=== PATIENT | male | born 1970 | race Caucasian/White ===

== ENCOUNTER 2019-04-16 06:41 | Inpatient (IN) | payer SELFPAY ==
[2019-06-03 06:22] LABS: BILIRUBIN,URINE NEGATIVE (NEG); CLARITY,URINE CLEAR; COLOR,URINE YELLOW
[2019-06-03 06:23] LABS: BACTERIA,URINE 0 /HPF (0-FEW); NITRITE,URINE NEGATIVE (NEG); PH,URINE 6.5; PROTEIN,URINE NEGATIVE (NEG-TRACE); RBC,URINE >40 /HPF (0-2); SQUAMOUS EPITHELIAL CELL,UR FEW /LPF; WBC,URINE 0 /HPF (0-4)
[2019-06-03 06:26] LABS: ALBUMIN 2.5 g/dL (3.4-5.0); ALBUMIN/GLOBULIN RATIO 0.5 (1.0-1.7); CALCIUM 8.5 mg/dL (8.5-10.1); CREATININE 0.9 mg/dL (0.7-1.3); GFR 89.3; POTASSIUM 3.6 mmol/L (3.5-5.1); TOTAL BILIRUBIN 0.4 mg/dL (0.2-1.0); TOTAL PROTEIN 7.1 g/dL (6.4-8.2)
[2019-06-03 06:27] LABS: HEMOGLOBIN 12.9 g/dL (13.0-17.5); MEAN CORPUSCULAR HEMOGLOBIN 32 pg (25-35); MEAN CORPUSCULAR HGB CONC 36 g/dL (31-37); MEAN CORPUSCULAR VOLUME 89 fL (79-100); RED BLOOD COUNT 4.05 x10^6/uL (4.30-5.70); RED CELL DISTRIBUTION WIDTH 12.6 % (11.5-14.5); WHITE BLOOD COUNT 10.3 x10^3/uL (4.0-11.0)
[2019-06-03 06:28] LABS: BASO % 0 % (0-3); EOS # 0.2 x10^3/uL (0.0-0.7); EOS % 2 % (0-3); LYMPH # 1.4 x10^3/uL (1.0-4.8); LYMPH % 13 % (24-48); MONO # 0.9 x10^3/uL (0.0-1.1); MONO % 9 % (0-9); NEUT # 7.8 x10^3/uL (1.8-7.7); NEUT % 76 % (31-73); PLATELET COUNT 286 x10^3/uL (140-400)
[2019-06-03 06:31] LABS: CREATININE 0.7 mg/dL (0.7-1.3); GFR 119.4
[2019-06-03 06:34] LABS: CALCIUM 8.6 mg/dL (8.5-10.1); CREATININE 0.8 mg/dL (0.7-1.3); GFR 102.3; POTASSIUM 3.5 mmol/L (3.5-5.1)
[2019-06-03 06:35] LABS: BASO % 0 % (0-3); EOS # 0.3 x10^3/uL (0.0-0.7); EOS % 3 % (0-3); HEMATOCRIT 38.4 % (39.0-53.0); HEMOGLOBIN 13.5 g/dL (13.0-17.5); LYMPH # 1.6 x10^3/uL (1.0-4.8); LYMPH % 19 % (24-48); MEAN CORPUSCULAR HEMOGLOBIN 31 pg (25-35); MEAN CORPUSCULAR HGB CONC 35 g/dL (31-37); MEAN CORPUSCULAR VOLUME 89 fL (79-100); MONO # 0.8 x10^3/uL (0.0-1.1); MONO % 9 % (0-9); NEUT # 5.7 x10^3/uL (1.8-7.7); NEUT % 68 % (31-73); PLATELET COUNT 356 x10^3/uL (140-400); RED BLOOD COUNT 4.33 x10^6/uL (4.30-5.70); RED CELL DISTRIBUTION WIDTH 12.7 % (11.5-14.5); WHITE BLOOD COUNT 8.4 x10^3/uL (4.0-11.0)
--- NOTE | 2019-06-03 10:49 | RAD ---
CT ABD PELV W/ IV CONTRST ONLY Indication: Abdominal wall cellulitis. Exposure: One or more of the following individualized dose reduction techniques were utilized for this examination: 1. Automated exposure control 2. Adjustment of the mA and/or kV according to patient size 3. Use of iterative reconstruction technique. Technique: Intravenous contrast was given. No oral contrast per request. Comparison: None FINDINGS: Mild atelectasis or possible mild infiltrate in lung bases. Liver unremarkable. Spleen is nonenlarged. Pancreas is unremarkable. No adrenal mass. Kidneys demonstrate symmetric enhancement without hydronephrosis or focal mass. Small nonobstructive bilateral renal calculi are identified. No calcified gallstone. Gallbladder is mostly contracted. Aorta is nonaneurysmal. No significant lymph node enlargement. Mild gastric wall thickening proximally, likely just due to nondistention. No significant small bowel distention. No evidence of acute colitis. Mild retained stool through the colon. Appendix is not clearly visualized. No evidence of significant ascites or pneumoperitoneum. Urinary bladder appears grossly unremarkable. Prostate gland measures 5.3 cm wide. Vertebral body height and alignment are intact, mild spondylosis. No aggressive bone destruction. Diffuse hazy density within the anterior abdominal fat, much more so to the left of midline and centered at the level of the umbilicus. To lesser extent this extends through the left lateral flank. No organized fluid collection or is seen. IMPRESSION: 1. Diffuse stranding within the subcutaneous fat of the anterior abdominal wall, much more so to the left of midline, compatible with nonspecific edema, cellulitis or inflammatory etiology. No organized fluid collection is seen. 2. Mild atelectasis or possible infiltrate in lung bases. Electronically signed by: Ravin Mai MD (04/16/2019 8:43 AM) [facility]
== END 2019-04-18 13:32 | disposition home or self-care (01) | DRG 603 ==
LOC: ER 06:41 → 5 SOUTH 07:49
PROVIDERS: ADMIT Internal Medicine; ATTEND Internal Medicine
DX: L02.211 Cutaneous abscess of abdominal wall (principal); E11.65 Type 2 diabetes mellitus with hyperglycemia; R31.9 Hematuria, unspecified; L03.311 Cellulitis of abdominal wall; D64.9 Anemia, unspecified
CPT/HCPCS: 36415; 74177; 80048; 80053; 80202; 81001; 82565; 82962; 83605; 83690; 85025; 87040; 96365; 96375; 96376; J1815; J2405; J3010; J3370; J3490; J7030; J7040; J7050; Q9967; 99285-25; G0378

== ENCOUNTER 2021-04-29 12:18 | Emergency (ER) | payer SELFPAY ==
[~2021-04-29] VITALS: Ht 160 cm; Wt 80.9 kg
--- NOTE | 2021-04-29 14:11 | RAD ---
EXAM: Chest, single view. HISTORY: Extremity infection. COMPARISON: None. FINDINGS: A frontal view of the chest is obtained. There is mild diffuse increased interstitial opaci ty. There is no consolidation, pleural effusion or pneumothorax. The heart is normal in size. IMPRESSION: Mild diffuse increased interstitial opacity suggesting interstitial infiltrate. There is no consolidated pneumonia. Electronically signed by: Casandra Crowell MD (04/29/2021 2:09 PM) [id number]
[2021-04-29 14:14] LABS: BASO % 1 % (0-3); EOS # 0.3 x10^3/uL (0.0-0.7); EOS % 4 % (0-3); HEMATOCRIT 39.9 % (39.0-53.0); LYMPH # 1.7 x10^3/uL (1.0-4.8); LYMPH % 22 % (24-48); MEAN CORPUSCULAR HEMOGLOBIN 31 pg (25-35); MEAN CORPUSCULAR HGB CONC 35 g/dL (31-37); MEAN CORPUSCULAR VOLUME 90 fL (79-100); MONO # 0.6 x10^3/uL (0.0-1.1); MONO % 8 % (0-9); NEUT # 5.2 x10^3/uL (1.8-7.7); NEUT % 66 % (31-73); PLATELET COUNT 358 x10^3/uL (140-400); RED BLOOD COUNT 4.46 x10^6/uL (4.30-5.70); RED CELL DISTRIBUTION WIDTH 12.7 % (11.5-14.5); WHITE BLOOD COUNT 7.8 x10^3/uL (4.0-11.0)
[2021-04-29 14:29] LABS: BARBITURATES NEG (NEG); BENZODIAZEPINES NEG (NEG); CANNABINOIDS NEG (NEG); COCAINE NEG (NEG); METHADONE NEG (NEG); OPIATES NEG (NEG); PHENCYCLIDINE NEG (NEG)
[2021-04-29 14:31] LABS: AMPHETAMINE/METHAMPHETAMINE NEG (NEG)
[2021-04-29 14:32] LABS: CALCIUM 9.6 mg/dL (8.5-10.1); CREATININE 1.2 mg/dL (0.7-1.3); GFR 63.6; POTASSIUM 4.5 mmol/L (3.5-5.1)
[2021-04-29 14:38] LABS: ALBUMIN 3.3 g/dL (3.4-5.0); ALBUMIN/GLOBULIN RATIO 0.6 (1.0-1.7); MAGNESIUM 2.2 mg/dL (1.8-2.4); PHOSPHORUS 3.4 mg/dL (2.6-4.7); TOTAL BILIRUBIN 0.3 mg/dL (0.2-1.0)
--- NOTE | 2021-04-29 15:17 | EKG ---
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
[2021-04-29] MEDS ORDERED: LIDOCAINE 1% Multi-Dose 20 ML VIAL. INJ ONE (16:00)
--- NOTE | 2021-04-29 16:44 | RAD ---
Examination: 3 views of the left ankle HISTORY: History of lateral elbow cellulitis COMPARISON: None available FINDINGS: The elbow joint grossly appears unremarkable. There is mild soft tissue swelling identified about the elbow joint could be edema or cellulitis. No evidence of cortical disruption. IMPRESSION: Mild soft tissue swelling identified about the elbow joint could be edema or cellulitis. Electronically signed by: Sina Alejandra MD (04/29/2021 4:42 PM) [id number]
--- NOTE | 2021-04-29 16:51 | PHYS DOC ---
Past Medical History Past Surgical History: No Surgical History Smoking Status: Never Smoker Alcohol Use: None General Adult EDM: Chief Complaint: OTHER COMPLAINTS HPI: HPI: Patient is a 50 year old male presents emergency department complaining of an infection to his left elbow for the past week. Patient states he he went to see his primary care physician today who sent him straight to the emergency department to rule out MRSA. Patient reports he has had other abscesses in the past that he usually pops and they go away. Patient reports he has a type II diabetic however does not take his diabetic medicine at home because he is not interested in treating his diabetes. Patient denies chest pain, shortness of breath, nausea, vomiting, diarrhea, or other rashes or abscesses to his skin. Patient denies fever or chills. Patient denies IV drug abuse, denies illicit drug use, denies cigarette smoking, denies alcohol consumption. Patient reports his last tetanus immunization was greater than 5 years ago. Patient denies other physical complaints or physical concerns. Review of Systems: Review of Systems: 14 body systems of review of systems have been reviewed. See HPI for pertinent positives and negative responses, otherwise all other systems are negative, nonpertinent or noncontributory. Constitutional: Negative except as outlined in HPI above. Skin: Negative except as outlined in HPI above. Eyes: Negative except as outlined in HPI above. HENT: Negative except as outlined in HPI above. Respiratory: Negative except as outlined in HPI above. Cardiovascular: Negative except as outlined in HPI above. GI: Negative except as outlined in HPI above. : Negative except as outlined in HPI above. Musculoskeletal: Negative except as outlined in HPI above. Integument: Negative except as outlined in HPI above. Neurologic: Negative except as outlined in HPI above. Endocrine: Negative except as outlined in HPI above. Lymphatic: Negative except as outlined in HPI above. Psychiatric: Negative except as outlined in HPI above. Heart Score: C/O Chest Pain: No Risk Factors: Risk Factors: DM, Current or recent (<one month) smoker, HTN, HLP, family history of CAD, obesity. Risk Scores: Score 0 - 3: 2.5% MACE over next 6 weeks - Discharge Home Score 4 - 6: 20.3% MACE over next 6 weeks - Admit for Clinical Observation Score 7 - 10: 72.7% MACE over next 6 weeks - Early Invasive Strategies Current Medications: Current Medications Medications (Trade) Dose Ordered Sig/Mitch Start Time Stop Time Status Last Admin Dose Admin Lidocaine HCl (Lidocaine 1% 20ml Vial) 20 ml 1X ONCE 04/29/21 16:00 04/29/21 16:01 DC 04/29/21 16:00 20 ML Allergies: Allergies: Allergies Coded Allergies Type Severity Reaction Last Updated Verified No Known Drug Allergies 04/29/21 No Physical Exam: PE: Constitutional: Well developed, well nourished, no acute distress, non-toxic appearance. 50-year-old male in no apparent distress. Disheveled appearance. HENT: Normocephalic, atraumatic. Eyes: Conjunctiva normal, no discharge. Neck: Normal range of motion, no stridor. Cardiovascular: No cyanosis appreciated, distal cap refill less than 2 seconds. Lungs & Thorax: Patient is in no respiratory distress, no audible adventitious lung sounds appreciated. Abdomen: Nontender, no abnormalities noted. Skin: Warm, dry, no erythema, no rash. See extremity note for focused skin examination. Back: No tenderness, no deformities. Extremities: No tenderness, no cyanosis, no clubbing, ROM intact, no edema. Fluctuant abscess measuring 8 cm in diameter at left lateral elbow, full AROM/PROM of elbow joint. No lymphangitis appreciated. No loss of sensation distally, 2+ brachial and radial pulse, distal cap refill less than 2 seconds. Neurologic: Alert and oriented X 3, normal motor function, normal sensory function, no focal deficits noted. Psychologic: Affect normal, judgement normal, mood normal. Current Patient Data: Labs: Laboratory Tests Test 04/29/21 13:55 04/29/21 14:10 White Blood Count 7.8 x10^3/uL (4.0-11.0) Red Blood Count 4.46 x10^6/uL (4.30-5.70) Hemoglobin 14.0 g/dL (13.0-17.5) Hematocrit 39.9 % (39.0-53.0) Mean Corpuscular Volume 90 fL (79-100) Mean Corpuscular Hemoglobin 31 pg (25-35) Mean Corpuscular Hemoglobin Concent 35 g/dL (31-37) Red Cell Distribution Width 12.7 % (11.5-14.5) Platelet Count 358 x10^3/uL (140-400) Neutrophils (%) (Auto) 66 % (31-73) Lymphocytes (%) (Auto) 22 % (24-48) L Monocytes (%) (Auto) 8 % (0-9) Eosinophils (%) (Auto) 4 % (0-3) H Basophils (%) (Auto) 1 % (0-3) Neutrophils # (Auto) 5.2 x10^3/uL (1.8-7.7) Lymphocytes # (Auto) 1.7 x10^3/uL (1.0-4.8) Monocytes # (Auto) 0.6 x10^3/uL (0.0-1.1) Eosinophils # (Auto) 0.3 x10^3/uL (0.0-0.7) Basophils # (Auto) 0.0 x10^3/uL (0.0-0.2) Sodium Level 135 mmol/L (136-145) L Potassium Level 4.5 mmol/L (3.5-5.1) Chloride Level 99 mmol/L (98-107) Carbon Dioxide Level 28 mmol/L (21-32) Anion Gap 8 (6-14) Blood Urea Nitrogen 16 mg/dL (8-26) Creatinine 1.2 mg/dL (0.7-1.3) Estimated GFR (Cockcroft-Gault) 63.6 BUN/Creatinine Ratio 13 (6-20) Glucose Level 310 mg/dL (70-99) H Calcium Level 9.6 mg/dL (8.5-10.1) Phosphorus Level 3.4 mg/dL (2.6-4.7) Magnesium Level 2.2 mg/dL (1.8-2.4) Total Bilirubin 0.3 mg/dL (0.2-1.0) Aspartate Amino Transferase (AST) 16 U/L (15-37) Alanine Aminotransferase (ALT) 22 U/L (16-63) Alkaline Phosphatase 133 U/L (46-116) H Troponin I Quantitative < 0.017 ng/mL (0.000-0.055) Total Protein 9.0 g/dL (6.4-8.2) H Albumin 3.3 g/dL (3.4-5.0) L Albumin/Globulin Ratio 0.6 (1.0-1.7) L Urine Opiates Screen Neg (NEG) Urine Methadone Screen Neg (NEG) Urine Barbiturates Neg (NEG) Urine Phencyclidine Screen Neg (NEG) Urine Amphetamine/Methamphetamine Neg (NEG) Urine Benzodiazepines Screen Neg (NEG) Urine Cocaine Screen Neg (NEG) Urine Cannabinoids Screen Neg (NEG) Urine Ethyl Alcohol Neg (NEG) Laboratory Tests 04/29/21 13:55 Laboratory Tests 04/29/21 13:55 Vital Signs: Vital Signs Date Time Temp Pulse Resp B/P (MAP) Pulse Ox O2 Delivery O2 Flow Rate FiO2 04/29/21 13:53 98.2 56 20 217/84 (128) 100 Room Air 98.2 EKG: EKG: EKG performed at 1412 by ED nursing staff shows a sinus bradycardia at 49 bpm without other ectopy, UT interval 0.170, QTc interval 0.378, no acute STEMI, no ACS, no acute ischemia appreciated, EKG interpreted by ED attending physician Dr. Ching. Radiology/Procedures: Radiology/Procedures: PATIENT: FREDERIC PALACIOS ACCOUNT: [id number] : 1970 LOCATION: ER AGE: 50 SEX: M EXAM STATUS: REG ER ORD. PHYSICIAN: YAQUELIN MORALES APRN REASON: extremity infections PROCEDURE: CHEST AP ONLY EXAM: Chest, single view. HISTORY: Extremity infection. COMPARISON: None. FINDINGS: A frontal view of the chest is obtained. There is mild diffuse increased interstitial opacity. There is no consolidation, pleural effusion or pneumothorax. The heart is normal in size. IMPRESSION: Mild diffuse increased interstitial opacity suggesting interstitial infiltrate. There is no consolidated pneumonia. Electronically signed by: Casandra Crowell MD (04/29/2021 2:09 PM) [id number] PATIENT: FREDERIC PALACIOS ACCOUNT: [id number] : 1970 LOCATION: ER AGE: 50 SEX: M EXAM STATUS: REG ER ORD. PHYSICIAN: YAQUELIN MORALES APRN REASON: Lateral elbow cellulitis with abscess rule out osteomyelitis PROCEDURE: ELBOW LEFT 3V Examination: 3 views of the left ankle HISTORY: History of lateral elbow cellulitis COMPARISON: None available FINDINGS: The elbow joint grossly appears unremarkable. There is mild soft tissue swelling identified about the elbow joint could be edema or cellulitis. No evidence of cortical disruption. IMPRESSION: Mild soft tissue swelling identified about the elbow joint could be edema or cellulitis. Electronically signed by: Sina Alejandra MD (04/29/2021 4:42 PM) [id number] Course & Med Decision Making: Course & Med Decision Making Pertinent Labs and Imaging studies reviewed. (See chart for details) 50-year-old male, vital signs reviewed, presents emergency department concerning abscess of the left elbow. Physical examination consistent with abscess of the left elbow, patient's disheveled appearance, multiple scars from old abscess wounds on his upper extremities and abdomen, concerning for IV drug abuse, patient does deny illicit drug use, however there are family members present. Patient does have bradycardia upon initial triage vitals, will order cardiorespiratory work-up with blood cultures to rule out systemic infection. The patient is however afebrile, denies chest pain or chest discomfort. The patient's tetanus immunization will be brought up-to-date today in the emergency department with Adacel/Tdap, x-ray of left elbow to rule out osteomyelitis or deep tissue infection. See I&D note. Patient's labs unremarkable, x-ray nonconcerning for osteomyelitis, patient tolerated incision and drainage procedure well, will prescribe oral antibiotic regimen, strict follow-up with PCP in 3 days, wound recheck in 3 days. Return to ER precautions and concerns. Patient is amenable to ED discharge planning. Discussed with the patient all findings and diagnostic testing as well as the need to follow-up with their primary care provider for further evaluation and treatment or return to the ED if any new or worsening symptoms. Strict return precautions were also discussed at length, the patient voiced understanding and agreement with the discharge planning. The patient was nontoxic in appearance, in no apparent distress, and hemodynamically stable at the time of disposition. Dragon Disclaimer: Dragon Disclaimer: This electronic medical record was generated, in whole or in part, using a voice recognition dictation system. Incision and Drainage Time: 1600 Confirmed : Patient, procedure, side, and site correct. Consent: The patient has given verbal consent for incision and drainage of abscess of the left elbow. Indication: Abscess of the left elbow Performed by: Yaquelin Ames PLANNER-C Supervision: Dr. Ching was available for consult regarding the critical aspects of the procedure, incision, and post procedure exam. Preprocedure exam: Circulation, motor, and sensory intact. Procedural sedation: Not indicated. Description Location: Left lateral elbow Anesthesia: Anesthesia was achieved using 3 cc 1% lidocaine without epinephrine Preparation: Sterile field established, skin prepped with Betadine solution. Procedure The patient was positioned appropriately. An incision was then made over the central punctum of the left elbow abscess using a #11 blade scalpel. Technique: A fluid collection was manually decompressed, wound probed, lo culations decompressed . Drainage : Large amount of purulent, bloody, serosanguineous fluid expressed, a aerobic/anaerobic wound culture was sent to lab for C&S and Gram stain, the abscess cavity was irrigated with 500 cc normal saline using ZeroWet cap, the cavity was packed with 15 cm quarter inch sterile wound packing material.. Post procedure exam : Circulation, motor, sensory examination intact. Patient tolerated : Well. Complications: There were no complications. Follow-up: Home care instructions given. Total time: 10 minutes. Departure Departure Impression: Primary Impression: Abscess of left elbow Disposition: 01 HOME / SELF CARE / HOMELESS Condition: GOOD Referrals: LIAN PARKER M.D. (PCP) Patient Instructions: Abscess Additional Instructions: You were seen today in the emergency department for an abscess of your left elbow. This required an incision and drainage, this was then packed with cloth material to aid in healing. This will require a reevaluation in 3 days. Do not remove this packing, please continue to shower and perform wound care as you normally would. Please see your primary care doctor soon. I have started you on an oral antibiotic that you will take twice a day for the next week. Please order picker this prescription at the pharmacy and take as directed. Please return to the emergency department for worsening symptoms or other concerns. Thank you for visiting our Emergency Department. It was a pleasure taking care of you today in the emergency department and we appreciate you trusting us with your care. If any additional problems come up don't hesitate to return to visit us. Please follow up with your primary care provider so they can plan additional care if needed and know about the problem that you had. If symptoms worsen come back to the Emergency Department. Any concerning symptoms that start such as chest pain, shortness of air, weakness or numbness on one side of the body, running high fevers or any other concerning symptoms return to the ER. Hoy lo vieron en el departamento de emergencias por un absceso en buckley codo feliz. [place] requiri lor incisin y drenaje, luego se empaquet con material de lara para ayudar en la curacin. [place] requerir lor reevaluacin en 3 dangelo. No retire leigh empaque, contine duchndose y realice el cuidado de la herida oscar lo pablo normalmente. Consulte a buckley mdico de atencin primaria pronto. Le he comenzado con un antibitico oral que melissa dos veces al da edu la prxima semana. Recoja esta receta en la farmacia y tmela segn las indicaciones. Regrese al departamento de emergencias si los sntomas empeoran u otras inquietudes. Tavo por visitar nuestro Departamento de Emergencias. Fue un placer atenderlo hoy en el departamento de emergencias y le agradecemos que nos haya confiado buckley atencin. Si surge algn problema adicional, no dude en volver a visitarnos. Christopher un seguimiento con buckley proveedor de atencin primaria para que puedan planificar la atencin adicional si es necesario y conocer el problema que tuvo. Si los sntomas empeoran, regrese al Departamento de Emergencias. Cualquier sntoma preocupante que comience, oscar dolor en el pecho, falta de aire, debilidad o entumecimiento en un lado del cuerpo, fiebre melody o cualquier otro sntoma preocupante, regresa a la thelma de emergencias. EMERGENCY DEPARTMENT GENERAL DISCHARGE INSTRUCTIONS Thank you for coming to [facility] Emergency Department (ED) today and trusting us with you care. We trust that you had a positive experience in our Emergency Department. If you wish to speak to the department management, you may call the Director at [phone]. YOUR FOLLOW UP INSTRUCTIONS ARE FOLLOWS: 1. Do you have a private Doctor? If you do not have a private doctor, please ask for a resource list of physicians or clinics that may be able to assist you with follow up care. 2. The Emergency Physicain has interpreted your x-rays. The X-Ray specialist will also review them. If there is a change in the findings, you will be notified in 48 hours when at all possible. 3. A lab test or culture has been done, your results will be reviewed and you will be notified if you need a change in treatment. ADDITIONAL INSTRUCTIONS AND INFORMATION: 1. Your care today has been supervised by a physician who is specially trained in emergency care. Many problems require more than one evaluation for a complete diagnosis and treatment. We recommend that you schedule your follow up appointment as recommended to ensure complete treatment of you illness or injury. If you are unable to obtain follow up care and continue to have a problem, or if your condition worsens, we recommend that you return to the ED. 2. We are not able to safely determine your condition over the phone nor are we able to give sound medical advice over the phone. For these safety reasons, if you call for medical advice we will ask you to come to the ED for further evaluation. 3. If you have any questions regarding these discharge instructions please call the ED at [phone]. SAFETY INFORMATION: In the interest of safety, wellness, and injury prevention; we encourage you to wear your sealbelt, if you smoke; quite smoking, and we encourage family to use a protective helmet for bicycling and other sporting events that present an increased risk for head injury. IF YOUR SYMPTOMS WORSEN OR NEW SYMPTOMS DEVELOP, OR YOU HAVE CONCERNS ABOUT YOUR CONDITION; OR IF YOUR CONDITION WORSENS WHILE YOU ARE WAITING FOR YOUR FOLLOW UP APPOINTMENT; EITHER CONTACT YOUR PRIMARY CARE DOCTOR, THE PHYSICIAN WHOSE NAME AND NUMBER YOU WERE GIVEN, OR RETURN TO THE ED IMMEDIATELY. Scripts Sulfamethoxazole/Trimethoprim (BACTRIM DS TABLET) 1 Each Tablet 1 TAB PO BID for skin infection for 7 Days, #14 TAB 0 Refills Prov: YAQUELIN MORALES APRN 04/29/21 YAQUELIN MORALES APRN Apr 29, 2021 16:51
[2021-04-29 16:58] VITALS: BP 181/70
[2021-04-29] MEDS ORDERED: DIPH,PERTUSS(ACELL),TET VAC/PF 0.5 ML SYRINGE. VAX IM ONE (17:00)
[2021-04-29] MEDS ORDERED: SULF1TAB24 PO (17:18)
== END 2021-04-29 17:31 | disposition home or self-care (01) ==
LOC: ER 12:18
DX: L02.414 Cutaneous abscess of left upper limb (principal); R07.89 Other chest pain
CPT/HCPCS: 10060; 36415; 71045; 73080; 80053; 80307; 83735; 84100; 84484; 85025; 87040; 87071; 87075; 90471; 90715; 93005; 99285; J3490

== ENCOUNTER 2021-05-02 10:30 | Emergency (ER) | payer SELFPAY ==
[~2021-05-02] VITALS: Ht 172.7 cm; Wt 80.9 kg
[~2021-05-02 10:30] MED LIST: SULF1TAB24 PO
--- NOTE | 2021-05-02 12:23 | PHYS DOC ---
Past Medical History Past Medical History: Diabetes-Type II Past Surgical History: No Surgical History Smoking Status: Never Smoker Alcohol Use: None General Adult EDM: Chief Complaint: WOUND CHECK HPI: HPI: Patient is a 50 year old male with history of diabetes type 2 who presents to the ED today for wound check for an abscess that was drained on the left forearm 2 days ago. Patient states he also has a new wound on the umbilicus and right foot. Denies any fever. He states he was on Metformin and his sugars were running in the 400s a couple days ago. Review of Systems: Review of Systems: Constitutional: Denies fever or chills. [] Eyes: Denies change in visual acuity. [] HENT: Denies nasal congestion or sore throat. [] Respiratory: Denies, or shortness of breath. [] Cardiovascular: Denies chest pain or edema. [] GI: Denies abdominal pain, nausea, vomiting, bloody stools or diarrhea. [] : Denies dysuria. [] Musculoskeletal: Denies back pain or joint pain. [] Integument: Visit for wound check on the left forearm, right toe and umbilicus Neurologic: Denies headache, focal weakness or sensory changes. [] Psychiatric: Denies depression or anxiety. [] Heart Score: C/O Chest Pain: N/A Risk Factors: Risk Factors: DM, Current or recent (<one month) smoker, HTN, HLP, family history of CAD, obesity. Risk Scores: Score 0 - 3: 2.5% MACE over next 6 weeks - Discharge Home Score 4 - 6: 20.3% MACE over next 6 weeks - Admit for Clinical Observation Score 7 - 10: 72.7% MACE over next 6 weeks - Early Invasive Strategies Current Medications: Current Medications Medications (Trade) Dose Ordered Sig/Mitch Start Time Stop Time Status Last Admin Dose Admin Acetaminophen/ Hydrocodone Bitart (Lortab 5/325) 2 tab 1X ONCE 05/02/21 12:30 05/02/21 12:31 Ceftriaxone Sodium (Rocephin Im) 1 gm 1X ONCE 05/02/21 12:30 05/02/21 12:31 Lidocaine HCl (Xylocaine-Mpf 1% 2ml Vial) 2 ml 1X ONCE 05/02/21 12:30 05/02/21 12:31 Neomycin/ Polymyxin/ Bacitracin (Triple Antibiotic Ointment) 1 pkt 1X ONCE 05/02/21 12:45 05/02/21 12:46 Allergies: Allergies: Allergies Coded Allergies Type Severity Reaction Last Updated Verified No Known Drug Allergies 05/02/21 No Physical Exam: PE: Constitutional: Well developed, well nourished, no acute distress, non-toxic appearance. [] HENT: Normocephalic, atraumatic, bilateral external ears normal, oropharynx moist, no oral exudates, nose normal. [] Eyes: PERRLA, EOMI, conjunctiva normal, no discharge. [] Neck: Normal range of motion, no tenderness, supple, no stridor. [] Cardiovascular:Heart rate regular rhythm, no murmur [] Lungs & Thorax: Bilateral breath sounds clear to auscultation [] Abdomen: Bowel sounds normal, soft, no tenderness, no masses, no pulsatile masses. [] Skin: Umbilicus with a area of cellulitis surrounding the umbilicus. No drainage. Right great onychomycosis. CT perfusion elbow contusion but not infected. Left lateral elbow with an open abscess roughly 2 x 0.5 cm. The area has packing and is draining moderate amount of purulent bloody material. See I&D note. Back: No tenderness, no CVA tenderness. [] Extremities: No tenderness, no cyanosis, no clubbing, ROM intact, no edema. [] Neurologic: Alert and oriented X 3, normal motor function, normal sensory fun ction, no focal deficits noted. [] Psychologic: Affect normal, judgement normal, mood normal. [] Current Patient Data: Labs: Laboratory Tests Test 05/02/21 11:19 Glucose (Fingerstick) 296 mg/dL (70-99) H Vital Signs: Vital Signs Date Time Temp Pulse Resp B/P (MAP) Pulse Ox O2 Delivery O2 Flow Rate FiO2 05/02/21 10:51 98.4 70 18 161/79 (106) 99 Room Air 98.4 EKG: EKG: [] Radiology/Procedures: Radiology/Procedures: Indication: abscess left elbow Procedure: The patient was positioned appropriately. Local anesthesia was N/A. Moderate amount of yellow bloody material was expressed. The drainage cavity was irrigated and packed with sterile iodoform gauze. The patients tetanus status updated as needed. The patient tolerated the procedure well. Complications: none.[] Course & Med Decision Making: Course & Med Decision Making Pertinent Labs and Imaging studies reviewed. (See chart for details) This a 50-year-old male patient presented to the ED today for wound check for an abscess that was drained on the left elbow/forearm 2 days ago. The abscess had recollected more pus, I redrained it in the ED and packed it. He also have cellulitis on his umbilicus. He had an area of blackness on the right great toe that wanted assessed. This does not appear infected, I recommended following up with the PCP for this. He was given Rocephin 1 g IM in the ED. He was given mupirocin ointment. He was discharged on cephalexin and instructed to return to the ED for 2 days for wound check, tetanus is up-to-date Glucose in the ED 296 Cement Mason line was used for Occitan Afsaneh Disclaimer: Dragon Disclaimer: This electronic medical record was generated, in whole or in part, using a voice recognition dictation system. Departure Departure Impression: Primary Impression: Abscess of left elbow Additional Impression: Cellulitis, umbilical Disposition: 01 HOME / SELF CARE / HOMELESS Condition: STABLE Referrals: LIAN PARKER M.D. (PCP) follow up with the ED in 2 days for wound check. Patient Instructions: Abscess, Care After, Cellulitis, [id number] Additional Instructions: Please keep the wound on your left forearm clean and dry. We sent antibiotics to your pharmacy. Please take them as ordered, continue taking Bactrim. Apply mupirocin to the umbilicus three times a day. Come back in two days to the ED for wound check Scripts Hydrocodone Bit/Acetaminophen (HYDROCODONE-APAP 5-325 ) 1 Tab Tablet 1 TAB PO PRN Q6HRS PRN for PAIN, #14 TAB 0 Refills Prov: PRISCAJAIMEDAVIE Calle CLINICAL INTERVIEWER 05/02/21 Cephalexin (CEPHALEXIN) 500 Mg Tablet 1 TAB PO TID, #30 TAB Prov: DAVIE ESPINOSA CLINICAL INTERVIEWER 05/02/21 DAVIE ESPINOSA APRN May 02, 2021 12:23
[2021-05-02] MEDS ORDERED: MUPIROCIN 2 % OINTMENT 22GM TUBE. TP STA (12:25)
[2021-05-02] MEDS ORDERED: LIDOCAINE 1% PF 2 ML VIAL. INJ ONE (12:30)
[2021-05-02] MEDS ORDERED: cefTRIAXone IM 1 GM VIAL IM ONE (12:30)
[2021-05-02] MEDS ORDERED: HYDROcodone/APAP 5/325MG 1 TAB TABLET PO ONE (12:30)
[2021-05-02] MEDS ORDERED: CEPH500T PO (12:31)
[2021-05-02] MEDS ORDERED: HYDR-2761 PO (12:31)
[2021-05-02 12:42] VITALS: BP 124/87
[2021-05-02] MEDS ORDERED: NEOMY/BACITR/POLYMYXIN OINT PACKET. TP ONE (12:45)
== END 2021-05-02 12:56 | disposition home or self-care (01) ==
LOC: ER 10:30
DX: L02.414 Cutaneous abscess of left upper limb (principal); L03.316 Cellulitis of umbilicus; E11.9 Type 2 diabetes mellitus without complications
CPT/HCPCS: 82962; 96372; 99283; J0696; J3490

== ENCOUNTER 2021-05-04 16:24 | Inpatient (IN) | payer SELFPAY ==
[~2021-05-04] VITALS: Ht 157.5 cm; Wt 75.3 kg
[~2021-05-04 16:24] MED LIST changes: +CEPH500T PO; +HYDR-2761 PO
[2021-05-04] MEDS ORDERED: fentaNYL PF VIAL 100 MCG/2 ML VIAL IVP ONE (17:45)
[2021-05-04] MEDS ORDERED: VANCOMYCIN PER PHARMACY MC ONE (17:45)
[2021-05-04] MEDS ORDERED: IV NORMAL SALINE 1000ML BAG 1,000 ML IV SCH (17:45)
--- NOTE | 2021-05-04 18:32 | PHYS DOC ---
Past Medical History Past Medical History: Diabetes-Type II (PETER LAND APRN) Past Surgical History: No Surgical History (PETER LAND APRN) Smoking Status: Never Smoker Alcohol Use: None (PETER LAND APRN) General Adult EDM: Chief Complaint: WOUND CHECK HPI: HPI: Patient is a 50 year old male who presents with patient was seen here on April 29 for his abscess to his left AC abscess that was opened and drained and packed. He was placed on Bactrim antibiotic. He then came back on May 02 for a wound recheck and also been complaining of right tip of toe wound or purple type area and redness to the umbilicus area around the bellybutton. Patient's packing was changed and he was then put on Keflex antibiotic. He was also given Rocephin 1 g at that time. Patient has a history of diabetes and was taking Metformin but does not want to take Metformin and does not wish to be treated. Patient has not taken any diabetes medication for quite some time. States his arm is very painful and is not getting any better. Denies numbness or tingling, fever, body aches, nausea, vomiting, skin color change, skin temperature change, focal weakness. Rating his pain an 8 out of 10. (PETER LAND APRN) Review of Systems: Review of Systems: Constitutional: Denies fever or chills. [] Eyes: Denies change in visual acuity. [] HENT: Denies nasal congestion or sore throat. [] Respiratory: Denies cough or shortness of breath. [] Cardiovascular: Denies chest pain or edema. [] GI: Denies abdominal pain, nausea, vomiting, bloody stools or diarrhea. [] : Denies dysuria. [] Musculoskeletal: Denies back pain or joint pain. + Left arm pain [] Integument: Denies rash. + Left AC abscess, +right great toe tip bruised area, +redness around bellybutton looks slightly crusty inside the belly button [] Neurologic: Denies headache, focal weakness or sensory changes. [] Endocrine: Denies polyuria or polydipsia. [] Lymphatic: Denies swollen glands. [] Psychiatric: Denies depression or anxiety. [] (PETER LAND APRN) Heart Score: C/O Chest Pain: No (PETER LAND APRN) Current Medications: Current Medications Medications (Trade) Dose Ordered Sig/[facility] Start Time Stop Time Status Last Admin Dose Admin Fentanyl Citrate (Fentanyl 2ml Vial) 50 mcg 1X ONCE 05/04/21 17:45 05/04/21 17:46 DC Sodium Chloride 1,000 ml @ 1,000 mls/hr Q1H 05/04/21 17:45 05/04/21 18:44 Vancomycin HCl (Vanco Per Pharmacy) 1 each 1X ONCE 05/04/21 17:45 05/04/21 17:46 UNV Vancomycin HCl 2 gm/Sodium Chloride 500 ml @ 250 mls/hr 1X ONCE 05/04/21 19:00 05/04/21 20:59 (PETER LAND APRN) Allergies: Allergies: Allergies Coded Allergies Type Severity Reaction Last Updated Verified No Known Drug Allergies 05/02/21 No (PETER LAND APRN) Physical Exam: PE: Constitutional: Well developed, well nourished, no acute distress, non-toxic appearance. [] HENT: Normocephalic, atraumatic, bilateral external ears normal, oropharynx moist, no oral exudates, nose normal. [] Eyes: PERRLA, EOMI, conjunctiva normal, no discharge. [] Neck: Normal range of motion, no tenderness, supple, no stridor. [] Cardiovascular:Heart rate regular rhythm, no murmur [] Lungs & Thorax: Bilateral breath sounds clear to auscultation [] Abdomen: Bowel sounds normal, soft, no tenderness, no masses, no pulsatile masses. [] Skin: Warm, dry, no erythema, no rash. Left AC abscess open and draining, right tip of toe bruising, redness in the bellybutton with crusting. [] Back: No tenderness, no CVA tenderness. [] Extremities: No tenderness, no cyanosis, no clubbing, ROM intact, no edema. [] Neurologic: Alert and oriented X 3, normal motor function, normal sensory function, no focal deficits noted. [] Psychologic: Affect normal, judgement normal, mood normal. [] (PETER LAND APRN) Current Patient Data: Vital Signs: Vital Signs Date Time Temp Pulse Resp B/P (MAP) Pulse Ox O2 Delivery O2 Flow Rate FiO2 05/04/21 17:25 97.8 63 16 166/81 (109) 100 Room Air 97.8 (PETER LAND APRN) EKG: EKG: [] (PETER LAND APRN) Radiology/Procedures: Radiology/Procedures: [] (PETER LAND APRN) Course & Med Decision Making: Course & Med Decision Making Pertinent Labs and Imaging studies reviewed. (See chart for details) See HPI. Alert and oriented x4. Ambulatory steady gait. Speaks in full clear sentences. Brim Stretcher is used as he is Uzbek-speaking. The wound on the right tip of his toe appears to be a bruise or a blood blister and is approximately 1 cm long and less than a half a centimeter wide. There is no tenderness or cellulitis or swelling to the toe or the foot. The area around the umbilicus is a red outline of the seminole of the umbilicus that is very thin and then there appears to be some crusting inside the umbilicus. Abdomen is soft and nontender. Left AC area with arm wound has packing from May 02 intact but is draining large amount of purulent and bloody fluid, reddened and there appears to be a small round hole adjacent to the area that is forming. Radial pulses strong and present. Cap refill less than 2 seconds. No focal weakness or laxity in the joint. No swelling to the actual joint. I spoke to Dr. Castillo for admission. I also consulted ID. Patient was started on vancomycin in the ED. [] (PETER LAND APRN) Course & Med Decision Making Care and Treatment plan independently provided by AUTOMATIC NAILING MACHINE OPERATOR. I was available for consult. Patients chart reviewed. (BETTIE TANG DO) Dragon Disclaimer: Afsaneh Disclaimer: This electronic medical record was generated, in whole or in part, using a voice recognition dictation system. (PETER LAND APRN) Departure Departure Impression: Primary Impression: Abscess Disposition: ADMITTED INPATIENT Admitting Physician: KIARRA (PETER LAND APRN) Condition: STABLE Referrals: LIAN PARKER M.D. (PCP) PETER LAND APRN May 04, 2021 18:32 BETTIE TANG DO May 06, 2021 18:35
[2021-05-04 18:59] LABS: BASO % 0 % (0-3); EOS # 0.3 x10^3/uL (0.0-0.7); EOS % 5 % (0-3); HEMATOCRIT 40.1 % (39.0-53.0); HEMOGLOBIN 14.4 g/dL (13.0-17.5); LYMPH # 1.8 x10^3/uL (1.0-4.8); LYMPH % 25 % (24-48); MEAN CORPUSCULAR HEMOGLOBIN 32 pg (25-35); MEAN CORPUSCULAR HGB CONC 36 g/dL (31-37); MEAN CORPUSCULAR VOLUME 89 fL (79-100); MONO # 0.6 x10^3/uL (0.0-1.1); MONO % 8 % (0-9); NEUT # 4.5 x10^3/uL (1.8-7.7); NEUT % 62 % (31-73); PLATELET COUNT 370 x10^3/uL (140-400); RED BLOOD COUNT 4.53 x10^6/uL (4.30-5.70); RED CELL DISTRIBUTION WIDTH 12.7 % (11.5-14.5); WHITE BLOOD COUNT 7.3 x10^3/uL (4.0-11.0)
[2021-05-04] MEDS ORDERED: VANCOMYCIN 2 GM in IV NORMAL SALINE 500ML BAG 500 ML IV ONE (19:00)
[2021-05-04 19:13] LABS: BILIRUBIN,URINE NEGATIVE (NEG); CLARITY,URINE CLEAR; COLOR,URINE YELLOW; NITRITE,URINE NEGATIVE (NEG); PH,URINE 6.5 (<5.0-8.0); PROTEIN,URINE NEGATIVE (NEG-TRACE); UROBILINOGEN,URINE 0.2 mg/dL (0.2 mg/dL)
[2021-05-04 19:15] LABS: CALCIUM 9.8 mg/dL (8.5-10.1); CREATININE 1.4 mg/dL (0.7-1.3); GFR 53.2
[2021-05-04 19:18] LABS: BACTERIA,URINE 0 /HPF (0-FEW); RBC,URINE 0 /HPF (0-2); WBC,URINE 0 /HPF (0-4)
[2021-05-04 19:20] LABS: ALBUMIN 3.6 g/dL (3.4-5.0); ALBUMIN/GLOBULIN RATIO 0.6 (1.0-1.7); C-REACTIVE PROTEIN 24.1 mg/L (0-3.3); TOTAL BILIRUBIN 0.2 mg/dL (0.2-1.0); TOTAL PROTEIN 9.7 g/dL (6.4-8.2)
[2021-05-04 19:26] LABS: AMPHETAMINE/METHAMPHETAMINE NEG (NEG); BARBITURATES NEG (NEG); BENZODIAZEPINES NEG (NEG); CANNABINOIDS NEG (NEG); COCAINE NEG (NEG); METHADONE NEG (NEG); OPIATES NEG (NEG); PHENCYCLIDINE NEG (NEG)
--- NOTE | 2021-05-04 20:18 | PDOC1 ---
History and Physical Date of Admission Date of Admission DATE: 05/04/21 TIME: 20:12 Identification/Chief Complaint Chief Complaint Abscess and cellulitis to left upper extremity Source Source: Chart review, Patient History of Present Illness History of Present Illness 51-year-old Welsh-speaking male with past medical history DM2, who presents to the ED with his third recent visit with complaint of abscess/cellulitis to his left antecubital region. He was initially seen on 04/29 and had I&D to this abscess and was prescribed Keflex. He presented again to the ED on 05/02 and discharged on Bactrim. Patient presents to the ED tonight with bleeding from his left AC with surrounding erythema. States he has taken his antibiotics as prescribed he also notes necrotic left first toe for the past week. He denies any injury or drainage. He reports some periumbilical erythema that has been present since prior to the COVID-19 pandemic. He also reports several areas on his skin of circumferential erythema that appear to resolve spontaneously. Labs on admission showed WBC 7.3, sodium 133, creatinine 1.4, CBG 230, CRP 24. He received IV vancomycin and IV fluids in the ED. He denies any fever, nausea, or vomiting. He received his COVID-19 [employer] vaccination in December 2020. Will admit patient for further medical management. Past Medical History Endocrine: Diabetes Past Surgical History Past Surgical History: No pertinent history Family History Family History: Diabetes Social History Smoke: No ALCOHOL: none Drugs: None Current Problem List Problem List Problems Medical Problems: (1) Abscess Status: Acute Current Medications Current Medications Current Medications Vancomycin HCl (Vanco Per Pharmacy) 1 each 1X ONCE MC ; Start 05/04/21 at 17:45; Stop 05/04/21 at 17:46; Status UNV Sodium Chloride 1,000 ml @ 1,000 mls/hr Q1H IV Last administered on 05/04/21at 19:57; Start 05/04/21 at 17:45; Stop 05/04/21 at 18:44; Status DC Fentanyl Citrate (Fentanyl 2ml Vial) 50 mcg 1X ONCE IVP Last administered on 05/04/21at 19:58; Start 05/04/21 at 17:45; Stop 05/04/21 at 17:46; Status DC Vancomycin HCl 2 gm/Sodium Chloride 500 ml @ 250 mls/hr 1X ONCE IV Last administered on 05/04/21at 19:59; Start 05/04/21 at 19:00; Stop 05/04/21 at 20:59 Active Scripts Active Hydrocodone-Apap 5-325 (Hydrocodone Bit/Acetaminophen) 1 Tab Tablet 1 Tab PO PRN Q6HRS PRN Cephalexin 500 Mg Tablet 1 Tab PO TID Bactrim Ds Tablet (Sulfamethoxazole/Trimethoprim) 1 Each Tablet 1 Tab PO BID 7 Days Allergies Allergies: Coded Allergies: No Known Drug Allergies (Unverified , 05/02/21) ROS Review of System GENERAL: No history of weight change, weakness or fevers. SKIN: No bruising, hair changes or rashes. EYES: No blurred, double or loss of vision. NOSE AND THROAT: No history of nosebleeds, hoarseness or sore throat. HEART: Denies chest pain, denies palpitations. LUNGS: Denies cough, hemoptysis, wheezing or shortness of breath. GASTROINTESTINAL: Denies nausea, vomiting, abdominal pain. GENITOURINARY: Denies dysuria, frequency, urgency, hematuria. NEUROLOGIC: Denies history of numbness, tingling, tremor or weakness. PSYCHIATRIC: Denies anxiety, denies depression. ENDOCRINE: No history of heat or cold intolerance, polyuria or polydipsia. EXTREMITIES: Cellulitis to left upper extremity. Denies muscle weakness, joint pain, pain on walking or stiffness. Physical Exam Physical Exam General: Alert, Oriented X3, Cooperative, No acute distress HEENT: PERRLA, EOMI Lungs: Clear to auscultation, Normal air movement Heart: RRR, no murmurs Cardiovascular: S1, S2 Abdomen: Normal bowel sounds, Soft, No tenderness Extremities: Abscess to left AC packed with bloody gauze, with active bleeding. No clubbing, No cyanosis Skin: Necrotic appearing distal right first toe with chronic trophic changes to toenail. Periumbilical erythema, with mild crusting. Neuro: Normal speech, Normal tone, Sensation intact Psych/Mental Status: Mental status NL, Mood NL Vitals Vitals Vital Signs Date Time Temp Pulse Resp B/P (MAP) Pulse Ox O2 Delivery O2 Flow Rate FiO2 05/04/21 19:58 18 100 Room Air 05/04/21 17:25 97.8 63 166/81 (109) 97.8 Labs Labs Laboratory Tests Test 05/04/21 18:30 05/04/21 19:07 White Blood Count 7.3 x10^3/uL (4.0-11.0) Red Blood Count 4.53 x10^6/uL (4.30-5.70) Hemoglobin 14.4 g/dL (13.0-17.5) Hematocrit 40.1 % (39.0-53.0) Mean Corpuscular Volume 89 fL (79-100) Mean Corpuscular Hemoglobin 32 pg (25-35) Mean Corpuscular Hemoglobin Concent 36 g/dL (31-37) Red Cell Distribution Width 12.7 % (11.5-14.5) Platelet Count 370 x10^3/uL (140-400) Neutrophils (%) (Auto) 62 % (31-73) Lymphocytes (%) (Auto) 25 % (24-48) Monocytes (%) (Auto) 8 % (0-9) Eosinophils (%) (Auto) 5 % (0-3) Basophils (%) (Auto) 0 % (0-3) Neutrophils # (Auto) 4.5 x10^3/uL (1.8-7.7) Lymphocytes # (Auto) 1.8 x10^3/uL (1.0-4.8) Monocytes # (Auto) 0.6 x10^3/uL (0.0-1.1) Eosinophils # (Auto) 0.3 x10^3/uL (0.0-0.7) Basophils # (Auto) 0.0 x10^3/uL (0.0-0.2) Erythrocyte Sedimentation Rate 90 (0-15) Sodium Level 133 mmol/L (136-145) Potassium Level 5.0 mmol/L (3.5-5.1) Chloride Level 97 mmol/L (98-107) Carbon Dioxide Level 25 mmol/L (21-32) Anion Gap 11 (6-14) Blood Urea Nitrogen 21 mg/dL (8-26) Creatinine 1.4 mg/dL (0.7-1.3) Estimated GFR (Cockcroft-Gault) 53.2 BUN/Creatinine Ratio 15 (6-20) Glucose Level 230 mg/dL (70-99) Lactic Acid Level 1.1 mmol/L (0.4-2.0) Calcium Level 9.8 mg/dL (8.5-10.1) Total Bilirubin 0.2 mg/dL (0.2-1.0) Aspartate Amino Transf (AST/SGOT) 20 U/L (15-37) Alanine Aminotransferase (ALT/SGPT) 25 U/L (16-63) Alkaline Phosphatase 126 U/L (46-116) C-Reactive Protein, Quantitative 24.1 mg/L (0-3.3) Total Protein 9.7 g/dL (6.4-8.2) Albumin 3.6 g/dL (3.4-5.0) Albumin/Globulin Ratio 0.6 (1.0-1.7) Urine Collection Type Unknown Urine Color Yellow Urine Clarity Clear Urine pH 6.5 (<5.0-8.0) Urine Specific [place] 1.010 (1.000-1.030) Urine Protein Negative mg/dL (NEG-TRACE) Urine Glucose (UA) 100 mg/dL (NEG) Urine Ketones (Stick) Negative mg/dL (NEG) Urine Blood Negative (NEG) Urine Nitrite Negative (NEG) Urine Bilirubin Negative (NEG) Urine Urobilinogen Dipstick 0.2 mg/dL (0.2 mg/dL) Urine Leukocyte Esterase Negative (NEG) Urine RBC 0 /HPF (0-2) Urine WBC 0 /HPF (0-4) Urine Bacteria 0 /HPF (0-FEW) Urine Opiates Screen Neg (NEG) Urine Methadone Screen Neg (NEG) Urine Barbiturates Neg (NEG) Urine Phencyclidine Screen Neg (NEG) Urine Amphetamine/Methamphetamine Neg (NEG) Urine Benzodiazepines Screen Neg (NEG) Urine Cocaine Screen Neg (NEG) Urine Cannabinoids Screen Neg (NEG) Urine Ethyl Alcohol Neg (NEG) Laboratory Tests Test 05/04/21 18:30 05/04/21 19:07 White Blood Count 7.3 x10^3/uL (4.0-11.0) Red Blood Count 4.53 x10^6/uL (4.30-5.70) Hemoglobin 14.4 g/dL (13.0-17.5) Hematocrit 40.1 % (39.0-53.0) Mean Corpuscular Volume 89 fL (79-100) Mean Corpuscular Hemoglobin 32 pg (25-35) Mean Corpuscular Hemoglobin Concent 36 g/dL (31-37) Red Cell Distribution Width 12.7 % (11.5-14.5) Platelet Count 370 x10^3/uL (140-400) Neutrophils (%) (Auto) 62 % (31-73) Lymphocytes (%) (Auto) 25 % (24-48) Monocytes (%) (Auto) 8 % (0-9) Eosinophils (%) (Auto) 5 % (0-3) Basophils (%) (Auto) 0 % (0-3) Neutrophils # (Auto) 4.5 x10^3/uL (1.8-7.7) Lymphocytes # (Auto) 1.8 x10^3/uL (1.0-4.8) Monocytes # (Auto) 0.6 x10^3/uL (0.0-1.1) Eosinophils # (Auto) 0.3 x10^3/uL (0.0-0.7) Basophils # (Auto) 0.0 x10^3/uL (0.0-0.2) Erythrocyte Sedimentation Rate 90 (0-15) Sodium Level 133 mmol/L (136-145) Potassium Level 5.0 mmol/L (3.5-5.1) Chloride Level 97 mmol/L (98-107) Carbon Dioxide Level 25 mmol/L (21-32) Anion Gap 11 (6-14) Blood Urea Nitrogen 21 mg/dL (8-26) Creatinine 1.4 mg/dL (0.7-1.3) Estimated GFR (Cockcroft-Gault) 53.2 BUN/Creatinine Ratio 15 (6-20) Glucose Level 230 mg/dL (70-99) Lactic Acid Level 1.1 mmol/L (0.4-2.0) Calcium Level 9.8 mg/dL (8.5-10.1) Total Bilirubin 0.2 mg/dL (0.2-1.0) Aspartate Amino Transf (AST/SGOT) 20 U/L (15-37) Alanine Aminotransferase (ALT/SGPT) 25 U/L (16-63) Alkaline Phosphatase 126 U/L (46-116) C-Reactive Protein, Quantitative 24.1 mg/L (0-3.3) Total Protein 9.7 g/dL (6.4-8.2) Albumin 3.6 g/dL (3.4-5.0) Albumin/Globulin Ratio 0.6 (1.0-1.7) Urine Collection Type Unknown Urine Color Yellow Urine Clarity Clear Urine pH 6.5 (<5.0-8.0) Urine Specific [place] 1.010 (1.000-1.030) Urine Protein Negative mg/dL (NEG-TRACE) Urine Glucose (UA) 100 mg/dL (NEG) Urine Ketones (Stick) Negative mg/dL (NEG) Urine Blood Negative (NEG) Urine Nitrite Negative (NEG) Urine Bilirubin Negative (NEG) Urine Urobilinogen Dipstick 0.2 mg/dL (0.2 mg/dL) Urine Leukocyte Esterase Negative (NEG) Urine RBC 0 /HPF (0-2) Urine WBC 0 /HPF (0-4) Urine Bacteria 0 /HPF (0-FEW) Urine Opiates Screen Neg (NEG) Urine Methadone Screen Neg (NEG) Urine Barbiturates Neg (NEG) Urine Phencyclidine Screen Neg (NEG) Urine Amphetamine/Methamphetamine Neg (NEG) Urine Benzodiazepines Screen Neg (NEG) Urine Cocaine Screen Neg (NEG) Urine Cannabinoids Screen Neg (NEG) Urine Ethyl Alcohol Neg (NEG) VTE Prophylaxis Ordered VTE Prophylaxis Devices: Yes VTE Pharmacological Prophylaxi: No Assessment/Plan Assessment/Plan Abscess to left lateral AC s/p I&D with surrounding cellulitis Necrotic appearing distal left first toe FARZANA due to vasomotor nephropathy DM2 with hyperglycemia Plan: Received IV vancomycin and IV fluids in ED We will continue treatment with Zyvox and Zosyn, given FARZANA. Consultation placed to ID We will provide IV fluids and monitor kidney function for improvement. Baseline kidney function from 04/2019 showed creatinine 1.8, eGFR 102.3. Basal/prandial insulin; A1c pending. Will obtain x-ray right first toe FEN - ADA diet PPX - SCDs due to active bleeding FULL CODE Dispo - inpatient for above Patient names his (Maya Argueta) as surrogate decision-maker Justifications for Admission Other Justification VIANCA HUBBARD MD May 04, 2021 20:18
[2021-05-04] MEDS ORDERED: hydrALAZINE 20 MG/ML VIAL. IVP PRN (20:30)
[2021-05-04] MEDS ORDERED: ZOLPIDEM 5 MG TABLET. PO PRN (20:45)
[2021-05-04] MEDS ORDERED: PIP/TAZO PER PHARMACY MC PRN (20:45)
[2021-05-04] MEDS ORDERED: CALCIUM CARBONATE 500 MG TAB.CHEW PO PRN (20:45)
[2021-05-04] MEDS ORDERED: ACETAMINOPHEN 325 MG TABLET. PO PRN (20:45)
[2021-05-04] MEDS ORDERED: ONDANSETRON PF 4 MG/2 ML VIAL. IVP PRN (20:45)
[2021-05-04] MEDS ORDERED: MAG HYDROX/ALUMINUM HYD/SIMETH 30 ML ORAL.SUSP PO PRN (20:45)
[2021-05-04] MEDS ORDERED: HYDROcodone/APAP 5/325MG 1 TAB TABLET PO PRN ×2 (20:45)
[2021-05-04] MEDS ORDERED: MAGNESIUM HYDROXIDE 2,400 MG/30 ML ORAL.SUSP. PO PRN (20:45)
[2021-05-04] MEDS ORDERED: DEXTROSE 50% 25 GM / 50ML DISP.SYRIN. IV PRN (20:45)
[2021-05-04] MEDS ORDERED: INSULIN GLARGINE SYRINGE. SQ SCH (21:00)
[2021-05-04 22:37] VITALS: BP 169/63
--- NOTE | 2021-05-05 00:19 | RAD ---
Study: XR RT TOE 2+ VIEWS Indication: Necrotic first toe. Comparison: None. Findings: The soft tissues the distal great toe appears somewhat edematous and the nailbed irregular. No cortic al erosion or aggressive periostitis. No fracture or traumatic malalignment. Flexion deformities of t he lesser toes. Vascular calcifications. Impression: Heterogeneity of the distal great toe soft tissues and nailbed. No radiographic findings that would i ndicate osteomyelitis. Electronically signed by: DOMINGO DANG MD (05/05/2021 12:16 AM) [facility]
[2021-05-05] MEDS: PIPERACILLIN/TAZOBACTAM 3.375 GM in IV NORMAL SALINE 50ML 50 ML IV SCH ×2 (01:25→06:02)
[2021-05-05 03:39] VITALS: BP 146/66
[2021-05-05 05:27] LABS: BASO % 1 % (0-3); EOS # 0.3 x10^3/uL (0.0-0.7); EOS % 6 % (0-3); HEMOGLOBIN 12.3 g/dL (13.0-17.5); LYMPH # 1.7 x10^3/uL (1.0-4.8); LYMPH % 34 % (24-48); MEAN CORPUSCULAR HEMOGLOBIN 31 pg (25-35); MEAN CORPUSCULAR HGB CONC 34 g/dL (31-37); MEAN CORPUSCULAR VOLUME 91 fL (79-100); MONO # 0.5 x10^3/uL (0.0-1.1); MONO % 9 % (0-9); NEUT # 2.6 x10^3/uL (1.8-7.7); NEUT % 51 % (31-73); PLATELET COUNT 291 x10^3/uL (140-400); RED BLOOD COUNT 3.94 x10^6/uL (4.30-5.70); RED CELL DISTRIBUTION WIDTH 12.5 % (11.5-14.5); WHITE BLOOD COUNT 5.2 x10^3/uL (4.0-11.0)
[2021-05-05 05:47] LABS: CALCIUM 8.5 mg/dL (8.5-10.1); CREATININE 1.2 mg/dL (0.7-1.3); GFR 63.6
[2021-05-05 07:00] VITALS: BP 124/69
[2021-05-05] MEDS ORDERED: DEXTROSE 5% IV SCH (08:00)
[2021-05-05] MEDS ORDERED: CEFAZOLIN SODIUM IV SCH (08:00)
[2021-05-05] MEDS: INSULIN LISPRO 300 UNITS/3 ML VIAL. SQ SCH ×3 (08:21→17:00)
--- NOTE | 2021-05-05 08:37 | CONS ---
DATE OF CONSULTATION: 05/05/2021 REQUESTINGI PHYSICIAN: Dr. Nix. REASON FOR CONSULTATION: Antibiotic management of left antecubital fossa abscess. HISTORY OF PRESENT ILLNESS: This is a 50-year-old gentleman with history of diabetes who was seen done on in the ER with left antecubital fossa abscess, of which was I and D was done and was put on Bactrim at that time. The patient returned with having painful in that area and then some redness on the right big toe and at the belly button. The patient then was changed on Keflex, put on Rocephin and was subsequently admitted to the hospital. The patient denies any nausea, vomiting, diarrhea. Denies any fever, denies any chest pain, shortness of breath, abdominal pain, urinary symptoms or bowel symptoms. PAST MEDICAL HISTORY: Positive for diabetes mellitus. He is not taking care of it properly and he refuses to take medication for diabetes. SOCIAL HISTORY: Negative for smoking, alcohol, or illicit drug use. ALLERGIES: No known drug allergies. CURRENT MEDICATIONS: Reviewed. The patient is on Zyvox and Zosyn. ALLERGIES: No known drug allergies. CURRENT MEDICATIONS: Reviewed. REVIEW OF SYSTEMS: As in HPI. All other systems reviewed are negative. PHYSICAL EXAMINATION: GENERAL: Alert, oriented gentleman, not in distress. VITAL SIGNS: Temperature 98.1, pulse 54, respirations 16, blood pressure 146/66. HEENT: NAD. NECK: Supple, no JVP, no lymphadenopathy. LUNGS: Clear. HEART: S1, S2 regular. ABDOMEN: Soft, nontender, no organomegaly. EXTREMITIES: No edema, cyanosis. SKIN: The patient has a left proximal forearm abscess with I and D done and packing in place with surrounding erythema, induration and purulent drainage. His right toe distally has what appears to be light paronychia. There is no pus pointing. There is no erythema into the foot. There is erythema around the belly button. It looks like more of an eczema or psoriasis, although it is not a classic area for psoriasis probably it is eczema with a crusted red lesion. NEUROLOGIC: The patient is alert, awake, and appropriate. No focal neurologic deficit.. LABORATORY DATA: White count is normal. Sed rate is 90. BUN and creatinine is normal. IMAGING: The patient had elbow x-ray and toe x-ray, and they were unremarkable. IMPRESSION: 1. Left elbow skin soft tissue infection with abscess, MSSA, status post I and D. 2. Right big toe what appears to be possibly mild paronychia. 3. Redness around the umbilicus, it is eczema. 4. Diabetes. RECOMMENDATIONS: Change antibiotics to IV cefazolin soon to be able to change to oral for possible discharge. Thank you very much, Dr. Nix, for giving me opportunity to participate in this patient's care. MICAELA/SYEDA DR: MICAELA/ruthy TID: [id number]
[2021-05-05] MEDS: ASPIRIN ENTERIC COATED 325 MG TABLET.DR. PO SCH (09:39)
--- NOTE | 2021-05-05 09:51 | NUR ---
Bandage on left arm soiled. Replaced with 4X4 and Ashley
--- NOTE | 2021-05-05 10:55 | RAD ---
US DPLX ARTR EXTREM LOWER BILAT Indication: Reason: diabetic, necrotic left toe evaluate vascular insufficiency / Spl. Instructions: / History: Comparison: None. Procedure: Real-time grayscale, color flow Doppler, and Doppler spectral waveform analysis of the art erial system of the lower extremity is performed. Findings: Right lower extremity: Triphasic and biphasic waveforms throughout the right lower extremity. Elevate d velocity within the right common femoral artery measures 206 cm/s. Mild atheromatous plaque. No occ lusion Left lower extremity: Triphasic or biphasic waveforms throughout the left lower extremity. Mildly felicia vated velocity within the left common femoral artery measures 171 cm/s. Mild atheromatous plaque. No occlusion. IMPRESSION: 1. Moderately elevated velocity within the right common femoral artery, may indicate 50-75 percent s tenosis. 2. Mildly elevated velocity within the left common femoral artery, may indicate 30-49 percent stenos is. 3. Mild atheromatous plaque. Electronically signed by: Jermaine Levy DO (05/05/2021 10:52 AM) [facility]
[2021-05-05 11:00] VITALS: BP 121/65
[2021-05-05 15:00] VITALS: BP 130/67
--- NOTE | 2021-05-05 15:04 | PDOC ---
GENERAL General: Patient examined chart reviewed today's hospital day 2 for this patient with longstanding diabetes that he reports is fairly well controlled A1c is pending, right great toenail paronychia, concern for slow healing of left elbow infection. 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 We appreciate infectious diseases input we will defer to them on antibiotic choice. Patient's right great toe appears to be affected by paronychia as well as significant onychomycosis. There is no obvious necrosis there however patient is high risk with his underlying multimorbidity. I have added aspirin. We have consulted vascular and their assistance is appreciated. We do not need to involve them on an urgent basis as the toe does not appear acutely necrotic but there is some evidence of significant vascular disease on both sides especially worse on the right lower extremity. We will continue current management at this point. Time spent today is 30 minutes with greater than 50% in counseling and coordination of care most of which in discussion with patient. Problems: (1) Well controlled type 2 diabetes mellitus (2) Peripheral vascular disease (3) Paronychia of great toe, right VITAL SIGNS Vital Signs/I&O: Vital Signs Date Time Temp Pulse Resp B/P (MAP) Pulse Ox O2 Delivery O2 Flow Rate FiO2 05/05/21 11:00 98.5 55 16 121/65 (83) 98 Room Air 98.5 I & O 0 05/04/21 05/04/21 05/05/21 15:00 23:00 07:00 Intake Total 120 ml Output Total 500 ml Balance -380 ml In general the patient is pleasant alert and oriented x3 no acute distress HEENT exam is unremarkable for acute abnormality Neck is soft and supple no adenopathy or thyromegaly noted Chest is clear to auscultation Heart S1-S2 normal regular rate and rhythm no murmurs or gallops are noted Abdomen soft nontender nondistended no masses organomegaly noted Extremity exam is notable for a dark area at the distal end of the right great toenail which is also affected by onychomycosis. There does not appear to be necrosis of that right toe. There is paronychia noted without discharge of that right great toe. Pulses are intact throughout weaker on the right distal lower extremity when compared with the left. There are no other foot ulcers noted on either foot. Onychomycosis is involved bilaterally. ALLERGIES Allergies: Allergies Coded Allergies Type Severity Reaction Last Updated Verified No Known Drug Allergies 05/02/21 No MEDS Medications: Current Medications Medications (Trade) Dose Ordered Sig/Mitch Start Time Stop Time Status Last Admin Dose Admin Acetaminophen (Tylenol) 650 mg PRN Q6HRS PRN 05/04/21 20:45 Acetaminophen/ Hydrocodone Bitart (Lortab 5/325) 2 tab PRN Q4HRS PRN 05/04/21 20:45 05/05/21 00:05 Al Hydroxide/Mg Hydroxide (Mylanta Plus Xs) 30 ml PRN Q3HRS PRN 05/04/21 20:45 Aspirin (Ecotrin) 325 mg DAILY 05/05/21 09:30 05/05/21 09:39 Calcium Carbonate/ Glycine (Tums) 500 mg PRN Q3HRS PRN 05/04/21 20:45 Cefazolin Sodium 2000 mg/Dextrose 50 ml @ 100 mls/hr Q8HRS 05/05/21 08:00 Cancel Cefazolin Sodium/ Dextrose 50 ml @ 100 mls/hr Q8HRS 05/05/21 08:00 05/05/21 13:39 Dextrose (Dextrose 50%-Water Syringe) 12.5 gm PRN Q15MIN PRN 05/04/21 20:45 Fentanyl Citrate (Fentanyl 2ml Vial) 50 mcg 1X ONCE 05/04/21 17:45 05/04/21 17:46 DC 05/04/21 19:58 Hydralazine HCl (Apresoline Inj) 10 mg PRN Q4HRS PRN 05/04/21 20:30 Insulin Glargine (Lantus Syringe) 20 unit QHS 05/05/21 21:00 Insulin Human Lispro (HumaLOG) 3 units TIDWMEALS 05/05/21 08:00 05/05/21 13:50 Linezolid/Dextrose 300 ml @ 300 mls/hr Q12HR 05/04/21 21:00 05/05/21 07:58 DC 05/04/21 23:57 Magnesium Hydroxide (Milk Of Magnesia) 2,400 mg PRN Q12HR PRN 05/04/21 20:45 Ondansetron HCl (Zofran) 4 mg PRN Q6HRS PRN 05/04/21 20:45 Piperacillin Sod/ Tazobactam Sod (Zosyn Per Pharmacy) 1 each PRN DAILY PRN 05/04/21 20:45 Piperacillin Sod/ Tazobactam Sod 3.375 gm/Sodium Chloride 50 ml @ 100 mls/hr Q6HRS 05/05/21 00:00 05/05/21 07:58 DC 05/05/21 06:02 Sodium Chloride 1,000 ml @ 1,000 mls/hr Q1H 05/04/21 17:45 05/04/21 18:44 DC 05/04/21 19:57 Vancomycin HCl (Vanco Per Pharmacy) 1 each 1X ONCE 05/04/21 17:45 05/04/21 20:34 DC Vancomycin HCl 2 gm/Sodium Chloride 500 ml @ 250 mls/hr 1X ONCE 05/04/21 19:00 05/04/21 20:34 DC 05/04/21 19:59 Zolpidem Tartrate (Ambien) 5 mg PRN QHS PRN 05/04/21 20:45 Current Medications Medications (Trade) Dose Ordered Sig/Mitch Route PRN Reason Start Time Stop Time Status Last Admin Dose Admin Sodium Chloride 1,000 ml @ 1,000 mls/hr Q1H IV 05/04/21 17:45 05/04/21 18:44 DC 05/04/21 19:57 Fentanyl Citrate (Fentanyl 2ml Vial) 50 mcg 1X ONCE IVP 05/04/21 17:45 05/04/21 17:46 DC 05/04/21 19:58 Vancomycin HCl 2 gm/Sodium Chloride 500 ml @ 250 mls/hr 1X ONCE IV 05/04/21 19:00 05/04/21 20:34 DC 05/04/21 19:59 Linezolid/Dextrose 300 ml @ 300 mls/hr Q12HR IV 05/04/21 21:00 05/05/21 07:58 DC 05/04/21 23:57 Piperacillin Sod/ Tazobactam Sod 3.375 gm/Sodium Chloride 50 ml @ 100 mls/hr Q6HRS IV 05/05/21 00:00 05/05/21 07:58 DC 05/05/21 06:02 Insulin Glargine (Lantus Syringe) 10 unit QHS SQ 05/04/21 21:00 05/05/21 09:33 DC 05/05/21 00:19 Insulin Human Lispro (HumaLOG) 3 units TIDWMEALS SQ 05/05/21 08:00 05/05/21 13:50 Acetaminophen/ Hydrocodone Bitart (Lortab 5/325) 2 tab PRN Q4HRS PRN PO MODERATE PAIN, SEVERE PAIN 05/04/21 20:45 05/05/21 00:05 Cefazolin Sodium/ Dextrose 50 ml @ 100 mls/hr Q8HRS IV 05/05/21 08:00 05/05/21 13:39 Aspirin (Ecotrin) 325 mg DAILY PO 05/05/21 09:30 05/05/21 09:39 LAB Lab: Laboratory Tests Test 05/04/21 18:30 05/04/21 19:07 05/04/21 20:05 05/04/21 22:32 White Blood Count 7.3 x10^3/uL (4.0-11.0) Red Blood Count 4.53 x10^6/uL (4.30-5.70) Hemoglobin 14.4 g/dL (13.0-17.5) Hematocrit 40.1 % (39.0-53.0) Mean Corpuscular Volume 89 fL (79-100) Mean Corpuscular Hemoglobin 32 pg (25-35) Mean Corpuscular Hemoglobin Concent 36 g/dL (31-37) Red Cell Distribution Width 12.7 % (11.5-14.5) Platelet Count 370 x10^3/uL (140-400) Neutrophils (%) (Auto) 62 % (31-73) Lymphocytes (%) (Auto) 25 % (24-48) Monocytes (%) (Auto) 8 % (0-9) Eosinophils (%) (Auto) 5 % (0-3) H Basophils (%) (Auto) 0 % (0-3) Neutrophils # (Auto) 4.5 x10^3/uL (1.8-7.7) Lymphocytes # (Auto) 1.8 x10^3/uL (1.0-4.8) Monocytes # (Auto) 0.6 x10^3/uL (0.0-1.1) Eosinophils # (Auto) 0.3 x10^3/uL (0.0-0.7) Basophils # (Auto) 0.0 x10^3/uL (0.0-0.2) Erythrocyte Sedimentation Rate 90 (0-15) H Sodium Level 133 mmol/L (136-145) L Potassium Level 5.0 mmol/L (3.5-5.1) Chloride Level 97 mmol/L (98-107) L Carbon Dioxide Level 25 mmol/L (21-32) Anion Gap 11 (6-14) Blood Urea Nitrogen 21 mg/dL (8-26) Creatinine 1.4 mg/dL (0.7-1.3) H Estimated GFR (Cockcroft-Gault) 53.2 BUN/Creatinine Ratio 15 (6-20) Glucose Level 230 mg/dL (70-99) H Lactic Acid Level 1.1 mmol/L (0.4-2.0) Calcium Level 9.8 mg/dL (8.5-10.1) Total Bilirubin 0.2 mg/dL (0.2-1.0) Aspartate Amino Transferase (AST) 20 U/L (15-37) Alanine Aminotransferase (ALT) 25 U/L (16-63) Alkaline Phosphatase 126 U/L (46-116) H C-Reactive Protein, Quantitative 24.1 mg/L (0-3.3) H Total Protein 9.7 g/dL (6.4-8.2) H Albumin 3.6 g/dL (3.4-5.0) Albumin/Globulin Ratio 0.6 (1.0-1.7) L Urine Collection Type Unknown Urine Color Yellow Urine Clarity Clear Urine pH 6.5 (<5.0-8.0) Urine Specific [place] 1.010 (1.000-1.030) Urine Protein Negative mg/dL (NEG-TRACE) Urine Glucose (UA) 100 mg/dL (NEG) Urine Ketones (Stick) Negative mg/dL (NEG) Urine Blood Negative (NEG) Urine Nitrite Negative (NEG) Urine Bilirubin Negative (NEG) Urine Urobilinogen Dipstick 0.2 mg/dL (0.2 mg/dL) Urine Leukocyte Esterase Negative (NEG) Urine RBC 0 /HPF (0-2) Urine WBC 0 /HPF (0-4) Urine Bacteria 0 /HPF (0-FEW) Urine Opiates Screen Neg (NEG) Urine Methadone Screen Neg (NEG) Urine Barbiturates Neg (NEG) Urine Phencyclidine Screen Neg (NEG) Urine Amphetamine/Methamphetamine Neg (NEG) Urine Benzodiazepines Screen Neg (NEG) Urine Cocaine Screen Neg (NEG) Urine Cannabinoids Screen Neg (NEG) Urine Ethyl Alcohol Neg (NEG) SARS-CoV-2 RNA (SHERLYN) Negative (Negative) SARS-CoV-2 Antigen (Rapid) Negative (NEGATIVE) Glucose (Fingerstick) 171 mg/dL (70-99) H Test 05/05/21 02:00 05/05/21 04:00 05/05/21 07:49 05/05/21 11:41 White Blood Count 5.2 x10^3/uL (4.0-11.0) Red Blood Count 3.94 x10^6/uL (4.30-5.70) L Hemoglobin 12.3 g/dL (13.0-17.5) L Hematocrit 36.0 % (39.0-53.0) L Mean Corpuscular Volume 91 fL (79-100) Mean Corpuscular Hemoglobin 31 pg (25-35) Mean Corpuscular Hemoglobin Concent 34 g/dL (31-37) Red Cell Distribution Width 12.5 % (11.5-14.5) Platelet Count 291 x10^3/uL (140-400) Neutrophils (%) (Auto) 51 % (31-73) Lymphocytes (%) (Auto) 34 % (24-48) Monocytes (%) (Auto) 9 % (0-9) Eosinophils (%) (Auto) 6 % (0-3) H Basophils (%) (Auto) 1 % (0-3) Neutrophils # (Auto) 2.6 x10^3/uL (1.8-7.7) Lymphocytes # (Auto) 1.7 x10^3/uL (1.0-4.8) Monocytes # (Auto) 0.5 x10^3/uL (0.0-1.1) Eosinophils # (Auto) 0.3 x10^3/uL (0.0-0.7) Basophils # (Auto) 0.0 x10^3/uL (0.0-0.2) Sodium Level 135 mmol/L (136-145) L Potassium Level 4.0 mmol/L (3.5-5.1) # Chloride Level 104 mmol/L (98-107) Carbon Dioxide Level 24 mmol/L (21-32) Anion Gap 7 (6-14) Blood Urea Nitrogen 17 mg/dL (8-26) Creatinine 1.2 mg/dL (0.7-1.3) Estimated GFR (Cockcroft-Gault) 63.6 Glucose Level 195 mg/dL (70-99) H Calcium Level 8.5 mg/dL (8.5-10.1) Glucose (Fingerstick) 210 mg/dL (70-99) H 160 mg/dL (70-99) H Laboratory Tests 05/04/21 18:30 05/05/21 02:00 Laboratory Tests 05/04/21 18:30 05/05/21 04:00 ASSESSMENT & PLAN A&P Plan as noted above This note was created using RS[employer] and may have omissions and/or errors due to 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 Justifications for Admission General Conditions Other justification for admit: Cellulitis to left lateral AC, FARZANA Other Justification MANDEEP MCFADDEN MD May 05, 2021 15:04
[2021-05-05 19:00] VITALS: BP 135/64
[2021-05-05] MEDS: LACTOBACILLUS RHAMNOSUS GG 1 CAPSULE. PO SCH (21:05)
[2021-05-05] MEDS: INSULIN GLARGINE SYRINGE. SQ SCH (21:07)
[2021-05-05 23:00] VITALS: BP 107/62
[2021-05-06 03:00] VITALS: BP 124/67
[2021-05-06 07:15] VITALS: BP 132/72
[2021-05-06] MEDS: INSULIN LISPRO 300 UNITS/3 ML VIAL. SQ SCH ×3 (08:00→17:00)
[2021-05-06 08:07] LABS: BASO % 1 % (0-3); EOS # 0.3 x10^3/uL (0.0-0.7); EOS % 5 % (0-3); LYMPH # 1.9 x10^3/uL (1.0-4.8); LYMPH % 35 % (24-48); MEAN CORPUSCULAR HEMOGLOBIN 31 pg (25-35); MEAN CORPUSCULAR HGB CONC 34 g/dL (31-37); MEAN CORPUSCULAR VOLUME 90 fL (79-100); MONO # 0.4 x10^3/uL (0.0-1.1); MONO % 7 % (0-9); NEUT # 2.9 x10^3/uL (1.8-7.7); NEUT % 53 % (31-73); PLATELET COUNT 318 x10^3/uL (140-400); RED BLOOD COUNT 4.25 x10^6/uL (4.30-5.70); RED CELL DISTRIBUTION WIDTH 12.5 % (11.5-14.5); WHITE BLOOD COUNT 5.4 x10^3/uL (4.0-11.0)
--- NOTE | 2021-05-06 08:23 | PDOC ---
Infectious Disease Note Subjective: Subjective Patient feels better Pain is under control Denies fever, nausea, vomiting, shortness of breath, diarrhea, abdominal pain, rash Otherwise as above Vital Signs: Vital Signs Vital Signs Date Time Temp Pulse Resp B/P (MAP) Pulse Ox O2 Delivery O2 Flow Rate FiO2 05/06/21 07:15 98.1 56 18 132/72 (92) 97 Room Air 98.1 Physical Exam: PHYSICAL EXAM GENERAL: Alert, oriented gentleman, not in distress. HEENT: no icterus, perrl ,no thrush NECK: Supple, no JVP, no lymphadenopathy. LUNGS: Clear. HEART: S1, S2 regular. ABDOMEN: Soft, nontender, no organomegaly. EXTREMITIES: No edema, cyanosis. SKIN: The patient has a left proximal forearm abscess with I and D done and packing in place with surrounding erythema, His right toe distally has what appears to be light paronychia. There is no pus pointing. There is no erythema into the foot. There is erythema around the belly button. It looks like more of an eczema or psoriasis, although it is not a classic area for psoriasis probably it is eczema with a crusted red lesion. NEUROLOGIC: The patient is alert, awake, and appropriate. No focal neurologic deficit.. Medications: Inpatient Meds: Medications reviewed. Labs: Lab Laboratory Tests Test 05/05/21 11:41 05/05/21 17:18 05/05/21 20:08 05/06/21 07:02 Glucose (Fingerstick) 160 mg/dL (70-99) 94 mg/dL (70-99) 266 mg/dL (70-99) 147 mg/dL (70-99) Test 05/06/21 07:15 White Blood Count 5.4 x10^3/uL (4.0-11.0) Red Blood Count 4.25 x10^6/uL (4.30-5.70) Hemoglobin 13.0 g/dL (13.0-17.5) Hematocrit 38.0 % (39.0-53.0) Mean Corpuscular Volume 90 fL (79-100) Mean Corpuscular Hemoglobin 31 pg (25-35) Mean Corpuscular Hemoglobin Concent 34 g/dL (31-37) Red Cell Distribution Width 12.5 % (11.5-14.5) Platelet Count 318 x10^3/uL (140-400) Neutrophils (%) (Auto) 53 % (31-73) Lymphocytes (%) (Auto) 35 % (24-48) Monocytes (%) (Auto) 7 % (0-9) Eosinophils (%) (Auto) 5 % (0-3) Basophils (%) (Auto) 1 % (0-3) Neutrophils # (Auto) 2.9 x10^3/uL (1.8-7.7) Lymphocytes # (Auto) 1.9 x10^3/uL (1.0-4.8) Monocytes # (Auto) 0.4 x10^3/uL (0.0-1.1) Eosinophils # (Auto) 0.3 x10^3/uL (0.0-0.7) Basophils # (Auto) 0.0 x10^3/uL (0.0-0.2) Objective: Assessment: 1. Left elbow skin soft tissue infection with abscess, MSSA, status post I and D. 2. Right big toe what appears to be possibly mild paronychia. 3. Redness around the umbilicus, it is eczema. 4. Diabetes. Plan: Plan of Care Cont IV cefazolin cont wound care When ready for discharge can be transitioned to p.o. Keflex to complete the course of treatment ELIAZAR AGUILAR MD May 06, 2021 08:23
[2021-05-06 08:29] LABS: ALBUMIN 2.7 g/dL (3.4-5.0); ALBUMIN/GLOBULIN RATIO 0.6 (1.0-1.7); CALCIUM 8.4 mg/dL (8.5-10.1); GFR 78.5; POTASSIUM 3.8 mmol/L (3.5-5.1); TOTAL BILIRUBIN 0.2 mg/dL (0.2-1.0); TOTAL PROTEIN 7.4 g/dL (6.4-8.2)
--- NOTE | 2021-05-06 08:53 | PDOC2 ---
CONSULT Date of Service Date of Service DATE: 05/06/21 TIME: 08:41 Reason for Consult Reason for Consult: Right first toe discoloration, necrosis Referring Physician Referring Physician: Dr. Ruvalcaba Identification/Chief Complaint Chief Complaint Left arm abscess Source Source: Chart review, Patient (communication via google application support lead) History of Present Illness Reason for Visit: This is a 50-year-old diabetic male who was admitted to the hospital with a left antecubital abscess. I communicated with the patient via Google application support lead, he appears to understand. during his admission he was noted to have some discoloration on the tip of his right first toe. Patient denies any injury. Patient denies any ear erythema, swelling or drainage. Patient denies any lower extremity claudication. Arterial ultrasound suggest triphasic and biphasic flow throughout the right lower extremity, with moderate elevated flow velocities in the common femoral artery. He has palpable pulses by examination Past Medical History Endocrine: Diabetes Past Surgical History Past Surgical History: No pertinent history Family History Family History: Diabetes Social History No ALCOHOL: none Drugs: None Current Problem List Problem List Problems Medical Problems: (1) Abscess Status: Acute Current Medications Current Medications Current Medications Vancomycin HCl (Vanco Per Pharmacy) 1 each 1X ONCE MC ; Start 05/04/21 at 17:45; Stop 05/04/21 at 20:34; Status DC Sodium Chloride 1,000 ml @ 1,000 mls/hr Q1H IV Last administered on 05/04/21at 19:57; Start 05/04/21 at 17:45; Stop 05/04/21 at 18:44; Status DC Fentanyl Citrate (Fentanyl 2ml Vial) 50 mcg 1X ONCE IVP Last administered on 05/04/21at 19:58; Start 05/04/21 at 17:45; Stop 05/04/21 at 17:46; Status DC Vancomycin HCl 2 gm/Sodium Chloride 500 ml @ 250 mls/hr 1X ONCE IV Last administered on 05/04/21at 19:59; Start 05/04/21 at 19:00; Stop 05/04/21 at 20:34; Status DC Hydralazine HCl (Apresoline Inj) 10 mg PRN Q4HRS PRN IVP HYPERTENSION; Start 05/04/21 at 20:30 Piperacillin Sod/ Tazobactam Sod (Zosyn Per Pharmacy) 1 each PRN DAILY PRN MC SEE COMMENTS; Start 05/04/21 at 20:45 Linezolid/Dextrose 300 ml @ 300 mls/hr Q12HR IV Last administered on 05/04/21at 23:57; Start 05/04/21 at 21:00; Stop 05/05/21 at 07:58; Status DC Piperacillin Sod/ Tazobactam Sod 3.375 gm/Sodium Chloride 50 ml @ 100 mls/hr Q6HRS IV Last administered on 05/05/21at 06:02; Start 05/05/21 at 00:00; Stop 05/05/21 at 07:58; Status DC Insulin Glargine (Lantus Syringe) 10 unit QHS SQ Last administered on 05/05/21at 00:19; Start 05/04/21 at 21:00; Stop 05/05/21 at 09:33; Status DC Insulin Human Lispro (HumaLOG) 3 units TIDWMEALS SQ Last administered on 05/05/21at 13:50; Start 05/05/21 at 08:00 Dextrose (Dextrose 50%-Water Syringe) 12.5 gm PRN Q15MIN PRN IV SEE COMMENTS; Start 05/04/21 at 20:45 Ondansetron HCl (Zofran) 4 mg PRN Q6HRS PRN IVP NAUSEA/VOMITING; Start 05/04/21 at 20:45 Al Hydroxide/Mg Hydroxide (Mylanta Plus Xs) 30 ml PRN Q3HRS PRN PO HEARTBURN / GAS; Start 05/04/21 at 20:45 Calcium Carbonate/ Glycine (Tums) 500 mg PRN Q3HRS PRN PO UPSET STOMACH; Start 05/04/21 at 20:45 Zolpidem Tartrate (Ambien) 5 mg PRN QHS PRN PO INSOMNIA, MAY REPEAT IN 1HR; Start 05/04/21 at 20:45 Acetaminophen/ Hydrocodone Bitart (Lortab 5/325) 1 tab PRN Q4HRS PRN PO MILD PAIN 1-3; Start 05/04/21 at 20:45 Acetaminophen/ Hydrocodone Bitart (Lortab 5/325) 2 tab PRN Q4HRS PRN PO MODERATE PAIN, SEVERE PAIN Last administered on 05/05/21at 00:05; Start 05/04/21 at 20:45 Acetaminophen (Tylenol) 650 mg PRN Q6HRS PRN PO Headaches, Temp > 101.5F; Start 05/04/21 at 20:45 Magnesium Hydroxide (Milk Of Magnesia) 2,400 mg PRN Q12HR PRN PO CONSTIPATION; Start 05/04/21 at 20:45 Cefazolin Sodium 2000 mg/Dextrose 50 ml @ 100 mls/hr Q8HRS IV ; Start 05/05/21 at 08:00; Status Cancel Cefazolin Sodium/ Dextrose 50 ml @ 100 mls/hr Q8HRS IV Last administered on 05/06/21at 05:00; Start 05/05/21 at 08:00 Aspirin (Ecotrin) 325 mg DAILY PO Last administered on 05/05/21at 09:39; Start 05/05/21 at 09:30 Insulin Glargine (Lantus Syringe) 20 unit QHS SQ Last administered on 05/05/21at 21:07; Start 05/05/21 at 21:00 Lactobacillus Rhamnosus (Culturelle) 1 cap BID PO Last administered on 05/05/21at 21:05; Start 05/05/21 at 21:00 Active Scripts Active Hydrocodone-Apap 5-325 (Hydrocodone Bit/Acetaminophen) 1 Tab Tablet 1 Tab PO PRN Q6HRS PRN Cephalexin 500 Mg Tablet 1 Tab PO TID Bactrim Ds Tablet (Sulfamethoxazole/Trimethoprim) 1 Each Tablet 1 Tab PO BID 7 Days Allergies Allergies: Coded Allergies: No Known Drug Allergies (Unverified , 05/02/21) ROS Review of System Constitutional: Denies fever or chills Eyes: Denies any visual disturbances HENT: Denies nasal congestion or sore throat Respiratory: Denies cough or shortness of breath Cardiovascular: Denies any palpitations or chest pain GI: Denies abdominal pain, nausea, vomiting, bloody stools or diarrhea : Denies dysuria or hematuria Musculoskeletal: As per HPI Integument: As per HPI Neurologic: No gross deficits Endocrine: Diabetews Psychiatric: Denies anxiety or depression. Physical Exam Physical Exam General: Alert and oriented X3 HEENT: Atraumatic, Pupils equal, round. Mucous membranes moist. Neck: supple, no lymphadenopathy Cardiac: Heart rate regular. Lungs: Non-labored respirations. Abdomen: Soft, nontender, nondistended, no palpable masses. Extremities: 2+ palpable bilateral dorsalis pedis and posterior tibial pulses. Musculoskeletal: Gait steady. Moving all extremities. Skin: Left arm with dressing dry and intact. Right first toe with discoloration on the tip of the toe this appears to be superficial, possibly a blood blister that has thickened. He has onychomycosis. There is no swelling, erythema or dr ainage. Neurological: Motor and sensation intact. Psychiatry: No depression or anxiety Vitals VITALS Vital Signs Date Time Temp Pulse Resp B/P (MAP) Pulse Ox O2 Delivery O2 Flow Rate FiO2 05/06/21 07:15 98.1 56 18 132/72 (92) 97 Room Air 98.1 Labs Labs Laboratory Tests Test 05/04/21 18:30 05/04/21 19:07 05/04/21 20:05 05/04/21 22:32 White Blood Count 7.3 x10^3/uL (4.0-11.0) Red Blood Count 4.53 x10^6/uL (4.30-5.70) Hemoglobin 14.4 g/dL (13.0-17.5) Hematocrit 40.1 % (39.0-53.0) Mean Corpuscular Volume 89 fL (79-100) Mean Corpuscular Hemoglobin 32 pg (25-35) Mean Corpuscular Hemoglobin Concent 36 g/dL (31-37) Red Cell Distribution Width 12.7 % (11.5-14.5) Platelet Count 370 x10^3/uL (140-400) Neutrophils (%) (Auto) 62 % (31-73) Lymphocytes (%) (Auto) 25 % (24-48) Monocytes (%) (Auto) 8 % (0-9) Eosinophils (%) (Auto) 5 % (0-3) Basophils (%) (Auto) 0 % (0-3) Neutrophils # (Auto) 4.5 x10^3/uL (1.8-7.7) Lymphocytes # (Auto) 1.8 x10^3/uL (1.0-4.8) Monocytes # (Auto) 0.6 x10^3/uL (0.0-1.1) Eosinophils # (Auto) 0.3 x10^3/uL (0.0-0.7) Basophils # (Auto) 0.0 x10^3/uL (0.0-0.2) Erythrocyte Sedimentation Rate 90 (0-15) Sodium Level 133 mmol/L (136-145) Potassium Level 5.0 mmol/L (3.5-5.1) Chloride Level 97 mmol/L (98-107) Carbon Dioxide Level 25 mmol/L (21-32) Anion Gap 11 (6-14) Blood Urea Nitrogen 21 mg/dL (8-26) Creatinine 1.4 mg/dL (0.7-1.3) Estimated GFR (Cockcroft-Gault) 53.2 BUN/Creatinine Ratio 15 (6-20) Glucose Level 230 mg/dL (70-99) Lactic Acid Level 1.1 mmol/L (0.4-2.0) Calcium Level 9.8 mg/dL (8.5-10.1) Total Bilirubin 0.2 mg/dL (0.2-1.0) Aspartate Amino Transf (AST/SGOT) 20 U/L (15-37) Alanine Aminotransferase (ALT/SGPT) 25 U/L (16-63) Alkaline Phosphatase 126 U/L (46-116) C-Reactive Protein, Quantitative 24.1 mg/L (0-3.3) Total Protein 9.7 g/dL (6.4-8.2) Albumin 3.6 g/dL (3.4-5.0) Albumin/Globulin Ratio 0.6 (1.0-1.7) Urine Collection Type Unknown Urine Color Yellow Urine Clarity Clear Urine pH 6.5 (<5.0-8.0) Urine Specific Dinosaur 1.010 (1.000-1.030) Urine Protein Negative mg/dL (NEG-TRACE) Urine Glucose (UA) 100 mg/dL (NEG) Urine Ketones (Stick) Negative mg/dL (NEG) Urine Blood Negative (NEG) Urine Nitrite Negative (NEG) Urine Bilirubin Negative (NEG) Urine Urobilinogen Dipstick 0.2 mg/dL (0.2 mg/dL) Urine Leukocyte Esterase Negative (NEG) Urine RBC 0 /HPF (0-2) Urine WBC 0 /HPF (0-4) Urine Bacteria 0 /HPF (0-FEW) Urine Opiates Screen Neg (NEG) Urine Methadone Screen Neg (NEG) Urine Barbiturates Neg (NEG) Urine Phencyclidine Screen Neg (NEG) Urine Amphetamine/Methamphetamine Neg (NEG) Urine Benzodiazepines Screen Neg (NEG) Urine Cocaine Screen Neg (NEG) Urine Cannabinoids Screen Neg (NEG) Urine Ethyl Alcohol Neg (NEG) SARS-CoV-2 RNA (SHERLYN) Negative (Negative) SARS-CoV-2 Antigen (Rapid) Negative (NEGATIVE) Glucose (Fingerstick) 171 mg/dL (70-99) Test 05/05/21 02:00 05/05/21 04:00 05/05/21 07:49 05/05/21 11:41 White Blood Count 5.2 x10^3/uL (4.0-11.0) Red Blood Count 3.94 x10^6/uL (4.30-5.70) Hemoglobin 12.3 g/dL (13.0-17.5) Hematocrit 36.0 % (39.0-53.0) Mean Corpuscular Volume 91 fL (79-100) Mean Corpuscular Hemoglobin 31 pg (25-35) Mean Corpuscular Hemoglobin Concent 34 g/dL (31-37) Red Cell Distribution Width 12.5 % (11.5-14.5) Platelet Count 291 x10^3/uL (140-400) Neutrophils (%) (Auto) 51 % (31-73) Lymphocytes (%) (Auto) 34 % (24-48) Monocytes (%) (Auto) 9 % (0-9) Eosinophils (%) (Auto) 6 % (0-3) Basophils (%) (Auto) 1 % (0-3) Neutrophils # (Auto) 2.6 x10^3/uL (1.8-7.7) Lymphocytes # (Auto) 1.7 x10^3/uL (1.0-4.8) Monocytes # (Auto) 0.5 x10^3/uL (0.0-1.1) Eosinophils # (Auto) 0.3 x10^3/uL (0.0-0.7) Basophils # (Auto) 0.0 x10^3/uL (0.0-0.2) Sodium Level 135 mmol/L (136-145) Potassium Level 4.0 mmol/L (3.5-5.1) Chloride Level 104 mmol/L (98-107) Carbon Dioxide Level 24 mmol/L (21-32) Anion Gap 7 (6-14) Blood Urea Nitrogen 17 mg/dL (8-26) Creatinine 1.2 mg/dL (0.7-1.3) Estimated GFR (Cockcroft-Gault) 63.6 Glucose Level 195 mg/dL (70-99) Calcium Level 8.5 mg/dL (8.5-10.1) Glucose (Fingerstick) 210 mg/dL (70-99) 160 mg/dL (70-99) Test 05/05/21 17:18 05/05/21 20:08 05/06/21 07:02 05/06/21 07:15 Glucose (Fingerstick) 94 mg/dL (70-99) 266 mg/dL (70-99) 147 mg/dL (70-99) White Blood Count 5.4 x10^3/uL (4.0-11.0) Red Blood Count 4.25 x10^6/uL (4.30-5.70) Hemoglobin 13.0 g/dL (13.0-17.5) Hematocrit 38.0 % (39.0-53.0) Mean Corpuscular Volume 90 fL (79-100) Mean Corpuscular Hemoglobin 31 pg (25-35) Mean Corpuscular Hemoglobin Concent 34 g/dL (31-37) Red Cell Distribution Width 12.5 % (11.5-14.5) Platelet Count 318 x10^3/uL (140-400) Neutrophils (%) (Auto) 53 % (31-73) Lymphocytes (%) (Auto) 35 % (24-48) Monocytes (%) (Auto) 7 % (0-9) Eosinophils (%) (Auto) 5 % (0-3) Basophils (%) (Auto) 1 % (0-3) Neutrophils # (Auto) 2.9 x10^3/uL (1.8-7.7) Lymphocytes # (Auto) 1.9 x10^3/uL (1.0-4.8) Monocytes # (Auto) 0.4 x10^3/uL (0.0-1.1) Eosinophils # (Auto) 0.3 x10^3/uL (0.0-0.7) Basophils # (Auto) 0.0 x10^3/uL (0.0-0.2) Sodium Level 138 mmol/L (136-145) Potassium Level 3.8 mmol/L (3.5-5.1) Chloride Level 104 mmol/L (98-107) Carbon Dioxide Level 24 mmol/L (21-32) Anion Gap 10 (6-14) Blood Urea Nitrogen 12 mg/dL (8-26) Creatinine 1.0 mg/dL (0.7-1.3) Estimated GFR (Cockcroft-Gault) 78.5 BUN/Creatinine Ratio 12 (6-20) Glucose Level 130 mg/dL (70-99) Calcium Level 8.4 mg/dL (8.5-10.1) Total Bilirubin 0.2 mg/dL (0.2-1.0) Aspartate Amino Transf (AST/SGOT) 17 U/L (15-37) Alanine Aminotransferase (ALT/SGPT) 19 U/L (16-63) Alkaline Phosphatase 79 U/L (46-116) Total Protein 7.4 g/dL (6.4-8.2) Albumin 2.7 g/dL (3.4-5.0) Albumin/Globulin Ratio 0.6 (1.0-1.7) Laboratory Tests Test 05/05/21 11:41 05/05/21 17:18 05/05/21 20:08 05/06/21 07:02 Glucose (Fingerstick) 160 mg/dL (70-99) 94 mg/dL (70-99) 266 mg/dL (70-99) 147 mg/dL (70-99) Test 05/06/21 07:15 White Blood Count 5.4 x10^3/uL (4.0-11.0) Red Blood Count 4.25 x10^6/uL (4.30-5.70) Hemoglobin 13.0 g/dL (13.0-17.5) Hematocrit 38.0 % (39.0-53.0) Mean Corpuscular Volume 90 fL (79-100) Mean Corpuscular Hemoglobin 31 pg (25-35) Mean Corpuscular Hemoglobin Concent 34 g/dL (31-37) Red Cell Distribution Width 12.5 % (11.5-14.5) Platelet Count 318 x10^3/uL (140-400) Neutrophils (%) (Auto) 53 % (31-73) Lymphocytes (%) (Auto) 35 % (24-48) Monocytes (%) (Auto) 7 % (0-9) Eosinophils (%) (Auto) 5 % (0-3) Basophils (%) (Auto) 1 % (0-3) Neutrophils # (Auto) 2.9 x10^3/uL (1.8-7.7) Lymphocytes # (Auto) 1.9 x10^3/uL (1.0-4.8) Monocytes # (Auto) 0.4 x10^3/uL (0.0-1.1) Eosinophils # (Auto) 0.3 x10^3/uL (0.0-0.7) Basophils # (Auto) 0.0 x10^3/uL (0.0-0.2) Sodium Level 138 mmol/L (136-145) Potassium Level 3.8 mmol/L (3.5-5.1) Chloride Level 104 mmol/L (98-107) Carbon Dioxide Level 24 mmol/L (21-32) Anion Gap 10 (6-14) Blood Urea Nitrogen 12 mg/dL (8-26) Creatinine 1.0 mg/dL (0.7-1.3) Estimated GFR (Cockcroft-Gault) 78.5 BUN/Creatinine Ratio 12 (6-20) Glucose Level 130 mg/dL (70-99) Calcium Level 8.4 mg/dL (8.5-10.1) Total Bilirubin 0.2 mg/dL (0.2-1.0) Aspartate Amino Transf (AST/SGOT) 17 U/L (15-37) Alanine Aminotransferase (ALT/SGPT) 19 U/L (16-63) Alkaline Phosphatase 79 U/L (46-116) Total Protein 7.4 g/dL (6.4-8.2) Albumin 2.7 g/dL (3.4-5.0) Albumin/Globulin Ratio 0.6 (1.0-1.7) Images Images Xray Right foot Findings: The soft tissues the distal great toe appears somewhat edematous and the nailbed irregular. No cortical erosion or aggressive periostitis. No fracture or traumatic malalignment. Flexion deformities of the lesser toes. Vascular calcifications. Impression: Heterogeneity of the distal great toe soft tissues and nailbed. No radiographic findings that would indicate osteomyelitis. Lower extremity arterial US Findings: Right lower extremity: Triphasic and biphasic waveforms throughout the right lower extremity. Elevated velocity within the right common femoral artery measures 206 cm/s. Mild atheromatous plaque. No occlusion Left lower extremity: Triphasic or biphasic waveforms throughout the left lower extremity. Mildly elevated velocity within the left common femoral artery measures 171 cm/s. Mild atheromatous plaque. No occlusion. IMPRESSION: 1. Moderately elevated velocity within the right common femoral artery, may indicate 50-75 percent stenosis. 2. Mildly elevated velocity within the left common femoral artery, may indicate 30-49 percent stenosis. 3. Mild atheromatous plaque. Assessment/Plan Assessment/Plan 50-year-old male with diabetes and right first toe discoloration. The area appears to be superficial, possibly a blister type formation/injury that has thickened. There is no erythema, swelling or purulent drainage. X-ray does not suggest any deep abscess or infection in the bone. Patient has palpable dorsalis pedis and posterior tibial pulses. No surgical or arterial intervention is recommended. Would recommend consultation to wound care team. In addition I recommended the patient seek the advice of a flight simulator teacher for his on onychomycosis. Recommend continued risk factor modification to include diabetes management. The patient would benefit from diabetic footwear. I discussed history and physical examination along with results of imaging with Dr. Melton and she agrees with above. Patient will be seen by one of the vascular surgeons make additional recommendations as needed RADHIKA LAGUERRE APRN May 06, 2021 08:53 MALLORY EMERY MD May 07, 2021 07:59
[2021-05-06] MEDS: ASPIRIN ENTERIC COATED 325 MG TABLET.DR. PO SCH (09:31)
[2021-05-06] MEDS: LACTOBACILLUS RHAMNOSUS GG 1 CAPSULE. PO SCH ×2 (09:31→21:31)
[2021-05-06 10:57] VITALS: BP 143/75
--- NOTE | 2021-05-06 11:07 | NUR ---
SW following. Discussed with RN, pt from home, room air, ada diet. COVID-19 negative. ID, Wound care and Vascular following. Pt currently on IV abx. Med Assist following for self pay status. SW will continue to follow.
--- NOTE | 2021-05-06 13:00 | PDOC ---
[facility] [facility] PROGRESS NOTE Date of Service DOS: DATE: 05/06/21 TIME: 12:58 Chief Complaint Chief Complaint Diabetic wounds History of Present Illness History of Present Illness 51-year-old F[place]ian-speaking male with past medical history DM2, who presents to the ED with his third recent visit with complaint of abscess/cellulitis to his left antecubital region. He was initially seen on 04/29 and had I&D to this abscess and was prescribed Keflex. He presented again to the ED on 05/02 and discharged on Bactrim. Patient presents to the ED tonight with bleeding from his left AC with surrounding erythema. States he has taken his antibiotics as prescribed he also notes necrotic left first toe for the past week. He denies any injury or drainage. He reports some periumbilical erythema that has been present since prior to the COVID-19 pandemic. He also reports several areas on his skin of circumferential erythema that appear to resolve spontaneously. Labs on admission showed WBC 7.3, sodium 133, creatinine 1.4, CBG 230, CRP 24. He received IV vancomycin and IV fluids in the ED. He denies any fever, nausea, or vomiting. He received his COVID-19 [employer] vaccination in December 2020. Will admit patient for further medical management. 05/06 No major complaints was seen at bedside. Infectious disease and vascular surgery following. Will consult podiatry due to onychomycosis. Continue antibiotics. Wound care consult. Continue current plan otherwise. Vitals/I&O Vitals/I&O: Vital Signs Date Time Temp Pulse Resp B/P (MAP) Pulse Ox O2 Delivery O2 Flow Rate FiO2 05/06/21 10:57 97.9 63 18 143/75 (97) 98 Room Air 97.9 Physical Exam Physical Exam: GENERAL: Alert, oriented gentleman, not in distress. HEENT: no icterus, perrl ,no thrush NECK: Supple, no JVP, no lymphadenopathy. LUNGS: Clear. HEART: S1, S2 regular. ABDOMEN: Soft, nontender, no organomegaly. EXTREMITIES: No edema, cyanosis. SKIN: The patient has a left proximal forearm abscess with I and D done and packing in place with surrounding erythema, His right toe distally has what appears to be light paronychia. There is no pus pointing. There is no erythema into the foot. There is erythema around the belly button. It looks like more of an eczema or psoriasis, although it is not a classic area for psoriasis probably it is eczema with a crusted red lesion. NEUROLOGIC: The patient is alert, awake, and appropriate. No focal neurologic deficit.. General: Alert, Oriented X3, Cooperative Heart: Regular rate, Normal S1, Normal S2 Lungs: Clear Abdomen: Normal bowel sounds Extremities: Other (Lower extremity wounds significantly wrapped up) Skin: Other (Lower extremity wound is significantly wrapped up) Labs Labs: Laboratory Tests Test 05/05/21 17:18 05/05/21 20:08 05/06/21 07:02 05/06/21 07:15 Glucose (Fingerstick) 94 mg/dL (70-99) 266 mg/dL (70-99) 147 mg/dL (70-99) White Blood Count 5.4 x10^3/uL (4.0-11.0) Red Blood Count 4.25 x10^6/uL (4.30-5.70) Hemoglobin 13.0 g/dL (13.0-17.5) Hematocrit 38.0 % (39.0-53.0) Mean Corpuscular Volume 90 fL (79-100) Mean Corpuscular Hemoglobin 31 pg (25-35) Mean Corpuscular Hemoglobin Concent 34 g/dL (31-37) Red Cell Distribution Width 12.5 % (11.5-14.5) Platelet Count 318 x10^3/uL (140-400) Neutrophils (%) (Auto) 53 % (31-73) Lymphocytes (%) (Auto) 35 % (24-48) Monocytes (%) (Auto) 7 % (0-9) Eosinophils (%) (Auto) 5 % (0-3) Basophils (%) (Auto) 1 % (0-3) Neutrophils # (Auto) 2.9 x10^3/uL (1.8-7.7) Lymphocytes # (Auto) 1.9 x10^3/uL (1.0-4.8) Monocytes # (Auto) 0.4 x10^3/uL (0.0-1.1) Eosinophils # (Auto) 0.3 x10^3/uL (0.0-0.7) Basophils # (Auto) 0.0 x10^3/uL (0.0-0.2) Sodium Level 138 mmol/L (136-145) Potassium Level 3.8 mmol/L (3.5-5.1) Chloride Level 104 mmol/L (98-107) Carbon Dioxide Level 24 mmol/L (21-32) Anion Gap 10 (6-14) Blood Urea Nitrogen 12 mg/dL (8-26) Creatinine 1.0 mg/dL (0.7-1.3) Estimated GFR (Cockcroft-Gault) 78.5 BUN/Creatinine Ratio 12 (6-20) Glucose Level 130 mg/dL (70-99) Calcium Level 8.4 mg/dL (8.5-10.1) Total Bilirubin 0.2 mg/dL (0.2-1.0) Aspartate Amino Transf (AST/SGOT) 17 U/L (15-37) Alanine Aminotransferase (ALT/SGPT) 19 U/L (16-63) Alkaline Phosphatase 79 U/L (46-116) Total Protein 7.4 g/dL (6.4-8.2) Albumin 2.7 g/dL (3.4-5.0) Albumin/Globulin Ratio 0.6 (1.0-1.7) Test 05/06/21 11:34 Glucose (Fingerstick) 243 mg/dL (70-99) Assessment and Plan Assessmemt and Plan Problems Medical Problems: (1) Abscess Status: Acute Abscess to left lateral AC s/p I&D with surrounding cellulitis Necrotic appearing distal left first toe FARZANA due to vasomotor nephropathy DM2 with hyperglycemia Plan: Received IV vancomycin and IV fluids in ED Antibiotics per infectious disease Consultation placed to ID We will provide IV fluids and monitor kidney function for improvement. Baseline kidney function from 04/2019 showed creatinine 1.8, eGFR 102.3. Basal/prandial insulin; A1c pending. Will obtain x-ray right first toe FEN - ADA diet PPX - SCDs due to active bleeding FULL CODE Dispo - inpatient for above Patient names his (Maya Argueta) as surrogate decision-maker Comment Review of Relevant I have reviewed the following items wilian (where applicable) has been applied. Medications: Current Medications Medications (Trade) Dose Ordered Sig/Mitch Route PRN Reason Start Time Stop Time Status Last Admin Dose Admin Insulin Glargine (Lantus Syringe) 20 unit QHS SQ 05/05/21 21:00 05/05/21 21:07 Lactobacillus Rhamnosus (Culturelle) 1 cap BID PO 05/05/21 21:00 05/06/21 09:31 Justifications for Admission General Conditions Other justification for admit: Cellulitis to left lateral AC, FARZANA Other Justification RUBY DIAZ MD May 06, 2021 13:00
[2021-05-06 14:46] VITALS: BP 132/69
--- NOTE | 2021-05-06 18:06 | NUR ---
Wound/Ostomy Care Wound Type/Assessment: Wound care consult for right great toe DFU and left AC abscess/cellulits. Per notes, pt had an I&D on left arm on 05/02. Pt states that has had multiple abscesses that just show up for no reason and states that no one has been able to tell him why this keeps happening to him, pt also stated that his blood sugars usually run in the 500s and that he has not picked up the medications that his PCP prescribed for him. Pt also c/o irritation on umbilicus area, states that it was draining pus a few days ago, seems to be resolved now, red irritation noted but no open wound to umbilicus at this time, denies any abdominal surgeries or piercing to the area in the past, states that he was hospitalized for this a couple of years ago but was never told what caused it. Pt asked this nurse multiple times if he could be discharge today, pt inform that if he leaves before antibiotic treatment is finished he will most likely come back to the ED once it gets worse, family at bedside advising him to stay and follow doctors recommendations. Right great toe with some dry blood blister and bruising, not open or draining, appears stable at this time. Treatment Recommendations/Plan: Cleanse all wounds with wound wash or saline and pat dry. Left AC: pack with hydrofera blue and cover with foam, change every 2-3 days. Right great toe: paint with betadine daily Umbilicus: may apply a little piece of aquacel ag if it starts draining again, A&D ointment to it to relieve skin irritation daily Pt might benefit from using Hibiclens soap as he stated that he has had multiple abscess all throughout his body, this was explained to pt and bottle of Hibiclens soap was left in room for him to use. Education provided: pt educated on wound healing and needing to keep blood sugars below 180 for optimal wound healing, teaching on how to do dressing changes at home provided as well. Reinforcement needed, pt asked the same questions over and over even after explaining it to him multiple times. Teaching done in [place] by this nurse. Offloading surface/device: pillows to elevate legs and left arm to reduce swelling Recommended Referrals/Tests: abdominal u/s if umbilicus starts draining again to r/o abscess or fistula. Discharge Recommendations for dressings: same as above
[2021-05-06 19:00] VITALS: BP 105/54
[2021-05-06] MEDS: INSULIN GLARGINE SYRINGE. SQ SCH (21:30)
[2021-05-06 22:22] LABS: HEMOGLOBIN A1C 11.8 % (4.8-5.6)
[2021-05-06 23:00] VITALS: BP 118/55
[2021-05-07 02:44] VITALS: BP 126/68
[2021-05-07 07:10] VITALS: BP 142/77
[2021-05-07] MEDS: INSULIN LISPRO 300 UNITS/3 ML VIAL. SQ SCH ×2 (08:00→12:37)
--- NOTE | 2021-05-07 08:02 | PDOC ---
Infectious Disease Note Subjective: Subjective Patient feels better Pain is under control Denies fever, nausea, vomiting, shortness of breath, diarrhea, abdominal pain, rash Otherwise as above Vital Signs: Vital Signs Vital Signs Date Time Temp Pulse Resp B/P (MAP) Pulse Ox O2 Delivery O2 Flow Rate FiO2 05/07/21 07:10 98.4 16 16 142/77 (98) 61 Room Air 98.4 Physical Exam: PHYSICAL EXAM GENERAL: Alert, oriented gentleman, not in distress. HEENT: no icterus, perrl ,no thrush NECK: Supple, no JVP, no lymphadenopathy. LUNGS: Clear. HEART: S1, S2 regular. ABDOMEN: Soft, nontender, no organomegaly. EXTREMITIES: No edema, cyanosis. SKIN: The patient has a left proximal forearm abscess with I and D done and packing in place with surrounding erythema, His right toe distally has what appears to be light paronychia. There is no pus expressed, dry, onychomycosis. There is no erythema into the foot. There is erythema around the belly button. It looks like more of an eczema or psoriasis, although it is not a classic area for psoriasis probably it is eczema with a crusted red lesion. NEUROLOGIC: The patient is alert, awake, and appropriate. No focal neurologic deficit.. Medications: Inpatient Meds: Medications reviewed. Labs: Lab Laboratory Tests Test 05/06/21 11:34 05/06/21 17:11 05/06/21 20:24 05/07/21 07:28 Glucose (Fingerstick) 243 mg/dL (70-99) 141 mg/dL (70-99) 285 mg/dL (70-99) 89 mg/dL (70-99) Objective: Assessment: 1. Left elbow skin soft tissue infection with abscess, MSSA, status post I and D. 2. Right big toe what appears to be possibly mild paronychia. 3. Redness around the umbilicus, it is eczema. 4. Diabetes. Plan: Plan of Care Dose ceftriaxone today cont wound care will need podiatry follow up When ready for discharge can be transitioned to p.o. Keflex for 10 days ELIAZAR AGUILAR MD May 07, 2021 08:02
[2021-05-07 08:05] LABS: GFR 78.5; POTASSIUM 3.9 mmol/L (3.5-5.1)
[2021-05-07] MEDS ORDERED: cefTRIAXone IV Push 2 GM VIAL. IVP SCH (09:00)
[2021-05-07] MEDS: ASPIRIN ENTERIC COATED 325 MG TABLET.DR. PO SCH (09:13)
[2021-05-07] MEDS: LACTOBACILLUS RHAMNOSUS GG 1 CAPSULE. PO SCH (09:13)
[2021-05-07 11:18] VITALS: BP 106/71
--- NOTE | 2021-05-07 14:38 | PDOC ---
[facility] PROGRESS NOTE Date of Service DOS: DATE: 05/07/21 TIME: 14:30 Chief Complaint Chief Complaint Diabetic wounds History of Present Illness History of Present Illness 51-year-old Azerbaijani-speaking male with past medical history DM2, who presents to the ED with his third recent visit with complaint of abscess/cellulitis to his left antecubital region. He was initially seen on 04/29 and had I&D to this abscess and was prescribed Keflex. He presented again to the ED on 05/02 and discharged on Bactrim. Patient presents to the ED tonight with bleeding from his left AC with surrounding erythema. States he has taken his antibiotics as prescribed he also notes necrotic left first toe for the past week. He denies any injury or drainage. He reports some periumbilical erythema that has been present since prior to the COVID-19 pandemic. He also reports several areas on his skin of circumferential erythema that appear to resolve spontaneously. Labs on admission showed WBC 7.3, sodium 133, creatinine 1.4, CBG 230, CRP 24. He received IV vancomycin and IV fluids in the ED. He denies any fever, nausea, or vomiting. He received his COVID-19 Diaz [employer] Diaz vaccination in December 2020. Will admit patient for further medical management. 05/06 No major complaints was seen at bedside. Infectious disease and vascular surgery following. Will consult podiatry due to onychomycosis. Continue antibiotics. Wound care consult. Continue current plan otherwise. 05/07/2021 No acute events overnight. Patient seen and examined bedside. Changed to ceftriaxone and will consider discharge in the morning tomorrow after antibiotic change. Will discharge with Keflex. Will monitor wounds for 1 more day and anticipate discharge in the morning. Patient's chart, labs, images were reviewed and discussed with RN Vitals/I&O Vitals/I&O: Vital Signs Date Time Temp Pulse Resp B/P (MAP) Pulse Ox O2 Delivery O2 Flow Rate FiO2 05/07/21 11:18 98.2 58 16 106/71 (83) 99 Room Air 98.2 I & O 05/06/21 05/06/21 05/07/21 15:00 23:00 07:00 Intake Total 690 ml 630 ml 50 ml Balance 690 ml 630 ml 50 ml Physical Exam Physical Exam: GENERAL: Alert, oriented gentleman, not in distress. HEENT: no icterus, perrl ,no thrush NECK: Supple, no JVP, no lymphadenopathy. LUNGS: Clear. HEART: S1, S2 regular. ABDOMEN: Soft, nontender, no organomegaly. EXTREMITIES: No edema, cyanosis. SKIN: The patient has a left proximal forearm abscess with I and D done and packing in place with surrounding erythema, His right toe distally has what appears to be light paronychia. There is no pus expressed, dry, onychomycosis. There is no erythema into the foot. There is erythema around the belly button. It looks like more of an eczema or psoriasis, although it is not a classic area for psoriasis probably it is eczema with a crusted red lesion. NEUROLOGIC: The patient is alert, awake, and appropriate. No focal neurologic deficit.. General: Alert, Oriented X3, Cooperative Heart: Regular rate, Normal S1, Normal S2 Lungs: Clear Abdomen: Normal bowel sounds Extremities: Other (Lower extremity wounds significantly wrapped up) Skin: Other (Lower extremity wound is significantly wrapped up) Labs Labs: Laboratory Tests Test 05/06/21 17:11 05/06/21 20:24 05/07/21 07:20 05/07/21 07:28 Glucose (Fingerstick) 141 mg/dL (70-99) 285 mg/dL (70-99) 89 mg/dL (70-99) Sodium Level 141 mmol/L (136-145) Potassium Level 3.9 mmol/L (3.5-5.1) Chloride Level 105 mmol/L (98-107) Carbon Dioxide Level 27 mmol/L (21-32) Anion Gap 9 (6-14) Blood Urea Nitrogen 15 mg/dL (8-26) Creatinine 1.0 mg/dL (0.7-1.3) Estimated GFR (Cockcroft-Gault) 78.5 Glucose Level 108 mg/dL (70-99) Calcium Level 9.0 mg/dL (8.5-10.1) Assessment and Plan Assessmemt and Plan Problems Medical Problems: (1) Abscess Status: Acute Comment Review of Relevant I have reviewed the following items wilian (where applicable) has been applied. Medications: Current Medications Medications (Trade) Dose Ordered Sig/Mitch Route PRN Reason Start Time Stop Time Status Last Admin Dose Admin Ceftriaxone Sodium (Rocephin) 2 gm Q24H IVP 05/07/21 09:00 05/07/21 09:49 Justifications for Admission General Conditions Other justification for admit: Cellulitis to left lateral AC, FARZANA Other Justification KHOA CASTILLO MD May 07, 2021 14:38
[2021-05-07] MEDS ORDERED: CEPH500C PO (14:40)
[2021-05-07] MEDS ORDERED: ASPI325T11 PO (14:40)
--- NOTE | 2021-05-07 14:41 | DISCH ---
DISCHARGE INSTRUCTIONS Condition on Discharge Condition on Discharge: Stable Activity After Discharge Activity Instructions for Disc: Activity as tolerated Lifting Instructions after Dis: Do not lift >10 pounds Exercise Instruction after Dis: Walk 15 min, 3 x per day Driving Instructions after Dis: No driving for 2 weeks Weight Bearing Status after Di: Full weight bearing Diet after Discharge Diet after Discharge: Diabetic No Calorie Level Follow-Up Follow up with: PCP within 2 weeks of discharge KHOA CASTILLO MD May 07, 2021 14:41
[2021-05-07 15:00] VITALS: BP 139/71
--- NOTE | 2021-05-07 16:35 | NUR ---
Discharge instructions given with dressing supplies given. Answered questions and concerns. Verbalized understanding. Reviewed dressing changes. Instructed to check blood sugars ac and hs/ keep diary. Follow up at clinic and bring diary. Pt discharged home accompanied by spouse.
[2021-05-07] MEDS ORDERED: METF10007 PO (16:50)
--- NOTE | 2021-05-08 20:54 | PDOC3 ---
[facility]-Discharge Summary Date of Admission: Date of Admission: May 04, 2021 Date of Discharge: Date of Discharge: May 07, 2021 Discharge Diagnosis: Discharge Diagnosis: Abscess to left lateral AC s/p I&D with surrounding cellulitis Necrotic appearing distal left first toe FARZANA due to vasomotor nephropathy DM2 with hyperglycemia Consults: Consults: ID Plan of Care Dose ceftriaxone today cont wound care will need podiatry follow up When ready for discharge can be transitioned to p.o. Keflex for 10 days Hospital Course: Hospital Course: 51-year-old Serbian-speaking male with past medical history DM2, who presents to the ED with his third recent visit with complaint of abscess/cellulitis to his left antecubital region. He was initially seen on 04/29 and had I&D to this abscess and was prescribed Keflex. He presented again to the ED on 05/02 and discharged on Bactrim. Patient presents to the ED tonight with bleeding from his left AC with surrounding erythema. States he has taken his antibiotics as prescribed he also notes necrotic left first toe for the past week. He denies any injury or drainage. He reports some periumbilical erythema that has been present since prior to the COVID-19 pandemic. He also reports several areas on his skin of circumferential erythema that appear to resolve spontaneously. Labs on admission showed WBC 7.3, sodium 133, creatinine 1.4, CBG 230, CRP 24. He received IV vancomycin and IV fluids in the ED. He denies any fever, nausea, or vomiting. He received his COVID-19 Diaz & Diaz vaccination in December 2020. Will admit patient for further medical management. 05/06 No major complaints was seen at bedside. Infectious disease and vascular surgery following. Will consult podiatry due to onychomycosis. Continue antibiotics. Wound care consult. Continue current plan otherwise. By day of discharge, pt was clinically stable and ready for discharge. Rest of hospital course was uneventful Disposition: Disposition/Orders: D/C to Home Activity: Activity: Resume previous activity Diet: Diet: Consistent Carbohydrate Medications: Home Meds Active Scripts Metformin Hcl (METFORMIN HCL) 1,000 Mg Tablet, 1000 MG PO BIDWMEALS for diabetes for 30 Days, #60 TAB 2 Refills Prov:KHOA CASTILLO MD 05/07/21 Cephalexin (KEFLEX) 500 Mg Capsule, 1 CAP PO BID for skin infection for 10 Days, #20 CAP Prov:KHOA CASTILLO MD 05/07/21 Aspirin (ASPIRIN EC) 325 Mg Tablet.dr, 325 MG PO DAILY for heart disease for 30 Days, #30 TAB.SR 1 Refill Prov:KHOA CASTILLO MD 05/07/21 Hydrocodone Bit/Acetaminophen (HYDROCODONE-APAP 5-325 ) 1 Tab Tablet, 1 TAB PO PRN Q6HRS PRN for PAIN, #14 TAB 0 Refills Prov:DAVIE ESPINOSA DOCTOR OSTEOPATHIC 05/02/21 Discontinued Scripts Cephalexin (CEPHALEXIN) 500 Mg Tablet, 1 TAB PO TID, #30 TAB Prov:DAVIE ESPINOSA DOCTOR OSTEOPATHIC 05/02/21 Sulfamethoxazole/Trimethoprim (BACTRIM DS TABLET) 1 Each Tablet, 1 TAB PO BID for skin infection for 7 Days, #14 TAB 0 Refills Prov:YAQUELIN MORALES DOCTOR OSTEOPATHIC 04/29/21 Scheduled Aspirin (Aspirin Ec), 325 MG PO DAILY Cephalexin (Keflex), 1 CAP PO BID Metformin Hcl (Metformin Hcl), 1,000 MG PO BIDWMEALS Scheduled PRN Hydrocodone Bit/Acetaminophen (Hydrocodone-Apap 5-325 ), 1 TAB PO PRN Q6HRS PRN for PAIN Discontinued Medications Cephalexin (Cephalexin), 1 TAB PO TID Sulfamethoxazole/Trimethoprim (Bactrim Ds Tablet), 1 TAB PO BID Total Time: Total Time: Total time spent was 32 minutes in preparing scripts, discharge planning with SW and RN, and preparing this discharge summary. Patient seen and examined on day of discharge. Justicifation of Admission Dx: Justifications for Admission: Justification of Admission Dx: Yes Cellulitis: Cellulitis KHOA CASTILLO MD May 08, 2021 20:54
== END 2021-05-07 16:35 | disposition home or self-care (01) | DRG 602 ==
LOC: ER 16:24 → 4 NORTH 19:42
PROVIDERS: ADMIT Family Medicine; ATTEND Family Medicine
DX: L03.114 Cellulitis of left upper limb (principal); N17.0 Acute kidney failure with tubular necrosis; E11.52 Type 2 diabetes mellitus with diabetic peripheral angiopathy with gangrene; L02.414 Cutaneous abscess of left upper limb; E11.65 Type 2 diabetes mellitus with hyperglycemia; B35.1 Tinea unguium; L30.9 Dermatitis, unspecified; B95.61 Methicillin susceptible Staphylococcus aureus infection as the cause of diseases classified elsewhere; L03.031 Cellulitis of right toe; Z20.822 Contact with and (suspected) exposure to COVID-19; Z83.3 Family history of diabetes mellitus
CPT/HCPCS: 36415; 73660; 80048; 80053; 80307; 81001; 82962; 83036; 83605; 85025; 85651; 86140; 87040; 87426; 93923; 96365; 96366; 96375; J0690; J0696; J1815; J2020; J2543; J3010; J3370; J7030; J7040; U0003; U0005; 99285-25; G0378